=== PATIENT | male | born 1980 | race Caucasian/White ===

== ENCOUNTER 2022-08-07 08:00 | Inpatient (IN) | payer OTHER, SELFPAY ==
[2022-08-07] VITALS (22 sets, daily range): BP systolic 121–182; BP diastolic 76–111; PULSE 67–124; RESP 7–229; TEMP 36.7–37.2; O2SAT 92–99; BMI 30.3; BMI 30.5
[2022-08-07] MEDS: SODIUM CHLORIDE 0.9% 1,000 ML 1000 ML IV ×2 (08:34→10:09)
[2022-08-07] MEDS: ONDANSETRON 4 MG/2 ML INJ IV ×2 (08:34→18:11)
--- NOTE | 2022-08-07 08:43 | ED.GENADULT ---
HPI - General Adult General Chief complaint: Abdominal Pain Stated complaint: Severe abd pain all over Time Seen by Provider: 08/07/22 08:40 Source: patient Mode of arrival: Ambulatory History of Present Illness HPI narrative: 41-year-old gentleman with history of hypertension presents with severe left upper quadrant pain acute onset at 6:00 a.m. this morning. He has had 2 prior episodes of significant pain has been diagnosed with pancreatitis no etiology was immediately identified, he is a moderate drinker only and medications include hydrochlorothiazide and gemfibrozil. The gemfibrozil was started after the last episode of pancreatitis. Does have the next available appointment with an restaurant kitchen manager which is mid September. He is diaphoretic, pale and vomiting from the severe pain. He describes no fevers, cough, chills, palpitations, headaches recently. Related Data Home Medications Medication Instructions Recorded Confirmed gemfibrozil 600 mg tablet 600 mg PO BID 08/07/22 08/07/22 hydrochlorothiazide 25 mg tablet 25 mg PO DAILY 08/07/22 08/07/22 Allergies Allergy/AdvReac Type Severity Reaction Status Date / Time No Known Drug Allergies Allergy Verified 08/07/22 08:16 Review of Systems Review of Systems Narrative: Remainder of complete review of systems is otherwise unremarkable except for that included in the HPI. Patient History Medical History Hypertension Pancreatitis Surgical History No pertinent past surgical history Family History Father Hypertriglyceridemia CAD (coronary artery disease) Mother No problems noted. Brother CAD (coronary artery disease) Social History household members: spouse Smoking Status: Current every day smoker alcohol intake: current Smoking Status: Current every day smoker alcohol intake frequency: 0-2 drinks per day Substance Use Type: does not use Exam Initial Vital Signs Initial Vital Signs: Vital Signs Pulse Rate 79 08/07/22 08:08 Pulse Oximetry 99 08/07/22 08:08 General: Healthy appearing, in significant pain but Able to give a complete and coherent history. Well-nourished well-developed HEENT: Moist mucous membranes, normal sclera with reactive pupils, Neck: No JVD, supple Respiratory: Lungs are clear to auscultation, no wheezing no rales no rhonchi. Full and symmetrical air movement Cardiac: Regular rate and rhythm no murmurs no bruits Abdomen: Significantly tender with mild guarding around the left upper quadrant, decreased bowel tones, no rebound. He has some mild left flank pain but describes this as more radiating from the abdominal left upper quadrant. No right-sided flank pain Skin: Warm and dry, no rashes Neurologic: Grossly neurologically intact with no obvious asymmetries or abnormalities Extremities: No trauma, well perfused Psych: Cooperative, appropriate insight and affect Course Orders Ordered: Acetaminophen (Acetaminophen 325 Mg Tablet) 975 mg PO Q8H PRN PRN Reason: Pain, Mild (1-3) Heparin Sodium (Porcine) (Heparin 5,000 Unit/Ml Vial) 5,000 unit SUBCUT BID [facility] Last Admin: 08/07/22 20:04 Dose: 5,000 unit Documented By: BEAN Hydromorphone HCl (Hydromorphone 1 Mg Inj) 1 mg IV Q2H PRN PRN Reason: Pain, Moderate (4-6) Last Admin: 08/08/22 00:17 Dose: 1 mg Documented By: Admin: 08/07/22 16:09 Dose: 1 mg Documented By: Admin: 08/07/22 14:21 Dose: 1 mg Documented By: REGINALDO Hydromorphone HCl (Hydromorphone 2 Mg Inj) 2 mg IV Q2H PRN PRN Reason: Pain, Severe (7-10) Last Admin: 08/08/22 01:10 Dose: 2 mg Documented By: Admin: 08/07/22 22:56 Dose: 2 mg Documented By: Admin: 08/07/22 20:04 Dose: 2 mg Documented By: Admin: 08/07/22 13:21 Dose: 2 mg Documented By: REGINALDO Hydromorphone HCl (Hydromorphone 1 Mg Inj) 1 mg IV Q1H PRN PRN Reason: Breakthrough Pain Last Admin: 08/07/22 22:01 Dose: 1 mg Documented By: Admin: 08/07/22 18:10 Dose: 1 mg Documented By: REGINALDO Dextrose/Sodium Chloride (Dextrose 5%-0.9% Ns) 1,000 mls @ 100 mls/hr IV CONT [facility] Last Admin: 08/08/22 04:24 Dose: 250 mls/hr Documented By: Infusion: 08/08/22 04:24 Dose: 250 mls/hr Documented By: Admin: 08/08/22 00:30 Dose: 250 mls/hr Documented By: Infusion: 08/08/22 00:20 Dose: 250 mls/hr Documented By: Infusion: 08/07/22 20:40 Dose: 250 mls/hr Documented By: Admin: 08/07/22 20:14 Dose: 200 mls/hr Documented By: Infusion: 08/07/22 19:36 Dose: 200 mls/hr Documented By: Infusion: 08/07/22 17:25 Dose: 200 mls/hr Documented By: Infusion: 08/07/22 15:12 Dose: 150 mls/hr Documented By: Admin: 08/07/22 12:53 Dose: 100 mls/hr Documented By: REGINALDO INSULIN DRIP PREMIX (Myxredlin Drip Premix) 100 unit in 100 mls @ 10.433 mls/hr IV TITRATE MICHAEL; Protocol Last Titration: 08/07/22 20:39 Dose: 0.05 unit/kg/hr, 5 mls/hr Documented By: BEAN Co-signed By: [facility] Admin: 08/07/22 20:16 Dose: 0.1 unit/kg/hr, 10.433 mls/hr Documented By: BEAN Co-signed By: [facility] Titration: 08/07/22 20:16 Dose: 0.1 unit/kg/hr, 10.433 mls/hr Documented By: BEAN Co-signed By: [facility] Admin: 08/07/22 12:55 Dose: 0.1 unit/kg/hr, 10.433 mls/hr Documented By: REGINALDO Co-signed By: Nicotine (Nicotine 14 Patch) 14 mg TOP DAILY MICHAEL Ondansetron HCl (Ondansetron 4 Mg/2 Ml Inj) 4 mg IV Q4HR PRN PRN Reason: Nausea And Vomiting Last Admin: 08/07/22 18:11 Dose: 4 mg Documented By: CW Discontinued Medications Hydromorphone HCl (Hydromorphone 1 Mg Inj) 1 mg IV NOW ONE Stop: 08/07/22 08:50 Last Admin: 08/07/22 09:02 Dose: 1 mg Documented By: SAMEERA Hydromorphone HCl (Hydromorphone 0.5 Mg Inj) 0.5 mg IV Q15MIN PRN PRN Reason: Pain, Last Admin: 08/07/22 10:04 Dose: 0.5 mg Documented By: SAMEERA Hydromorphone HCl (Hydromorphone 1 Mg Inj) 1 mg IV NOW ONE Stop: 08/07/22 09:46 Last Admin: 08/07/22 09:55 Dose: 1 mg Documented By: SAMEERA Sodium Chloride (Normal Saline 0.9%) 1,000 mls @ 1,000 mls/hr IV BOLUS ONE Stop: 08/07/22 09:33 Last Infusion: 08/07/22 10:06 Dose: 0 mls/hr Documented By: Admin: 08/07/22 08:34 Dose: 1,000 mls/hr Documented By: SAMEERA Sodium Chloride (Normal Saline 0.9%) 1,000 mls @ 1,000 mls/hr IV BOLUS ONE Stop: 08/07/22 09:48 Last Infusion: 08/07/22 12:26 Dose: 100 mls/hr Documented By: Admin: 08/07/22 10:09 Dose: 1,000 mls/hr Documented By: SAMEERA Nicotine (Nicotine 14 Patch) 14 mg TOP NOW ONE Stop: 08/07/22 13:43 Last Admin: 08/07/22 14:19 Dose: 14 mg Documented By: REGINALDO Ondansetron HCl (Ondansetron 4 Mg/2 Ml Inj) 4 mg IV NOW ONE Stop: 08/07/22 08:24 Last Admin: 08/07/22 08:34 Dose: 4 mg Documented By: SAMEERA Vital Signs Vital signs: Vital Signs - 8 hr 08/07/22 08:17 08/07/22 08:08 08/07/22 08:09 Temperature 98.2 F Pulse Rate 75 79 Respiratory Rate 18 Blood Pressure 182/111 H 182/111 H Pulse Oximetry 98 99 Oxygen Delivery Method Room Air 08/07/22 08:09 08/07/22 08:43 08/07/22 09:00 Temperature Pulse Rate 77 72 67 Respiratory Rate Blood Pressure Pulse Oximetry 98 99 95 Oxygen Delivery Method 08/07/22 09:47 08/07/22 09:47 Temperature Pulse Rate 73 Respiratory Rate 22 Blood Pressure 156/96 H Pulse Oximetry 95 Oxygen Delivery Method Medical Decision Making Lab Data Result diagrams: 08/07/22 08:25 08/07/22 08:25 Labs: Lab Results 08/07/22 08/07/22 08/07/22 Range/Units 08:25 08:25 08:25 WBC 7.2 (4.5-11.0) X10^3/uL RBC 4.76 (4.5-5.9) X10^6/uL Hgb 14.4 (13.5-17.5) g/dL Hct 41.7 (41-53) % MCV 87.6 (80-100) fL MCH 30.3 (26-34) PG MCHC 34.6 (30-36) % RDW 12.4 (11.6-14.8) % Plt Count 289 (150-400) X10^3/uL Neut % (Auto) 57.6 (50-75) % Lymph % (Auto) 33.9 (25-40) % [place] % (Auto) 6.5 (3-14) % Eos % (Auto) 1.5 L (2-4) % Baso % (Auto) 0.5 (0-2) % Neut # (Auto) 4200 (2859-2996) /uL Lymph # (Auto) 2400 (4259-4010) /uL [place] # (Auto) 500 (0-900) /uL Eos # (Auto) 100 (0-450) /uL Baso # (Auto) 0 (0-100) /uL Sodium 137 (137-145) mmol/L Potassium 5.0 (3.4-5.1) mmol/L Chloride 101 (98-107) mmol/L Carbon Dioxide 20 L (22-32) mmol/L BUN 15 (9-20) mg/dL Creatinine 0.62 L (0.66-1.25) mg/dL Estimated GFR > 60 (>60) mL/min BUN/Creatinine Ratio 24.2 H (6-22) Glucose 195 H (70-100) mg/dL Calcium 9.1 (8.4-10.2) mg/dL Total Bilirubin 1.2 (0.2-1.3) mg/dL AST 50 (17-59) IU/L ALT 42 (<50) IU/L Alkaline Phosphatase 83 (38-126) U/L Total Protein 9.1 H (6.3-8.2) g/dL Albumin 4.6 (3.5-5.0) g/dL Globulin 4.5 H (1.7-4.1) g/dL Albumin/Globulin Ratio 1.0 (1.0-2.8) Triglycerides 4714 H (35-150) mg/dL Lipase 2657 H (23-300) U/L SARS-CoV-2 (PCR) (Negative) Influenza A (RT-PCR) (NEGATIVE) Influenza B (RT-PCR) (NEGATIVE) RSV (PCR) (Negative) 08/07/22 Range/Units 09:57 WBC (4.5-11.0) X10^3/uL RBC (4.5-5.9) X10^6/uL Hgb (13.5-17.5) g/dL Hct (41-53) % MCV (80-100) fL MCH (26-34) PG MCHC (30-36) % RDW (11.6-14.8) % Plt Count (150-400) X10^3/uL Neut % (Auto) (50-75) % Lymph % (Auto) (25-40) % [place] % (Auto) (3-14) % Eos % (Auto) (2-4) % Baso % (Auto) (0-2) % Neut # (Auto) (5373-8610) /uL Lymph # (Auto) (9263-0491) /uL [place] # (Auto) (0-900) /uL Eos # (Auto) (0-450) /uL Baso # (Auto) (0-100) /uL Sodium (137-145) mmol/L Potassium (3.4-5.1) mmol/L Chloride (98-107) mmol/L Carbon Dioxide (22-32) mmol/L BUN (9-20) mg/dL Creatinine (0.66-1.25) mg/dL Estimated GFR (>60) mL/min BUN/Creatinine Ratio (6-22) Glucose (70-100) mg/dL Calcium (8.4-10.2) mg/dL Total Bilirubin (0.2-1.3) mg/dL AST (17-59) IU/L ALT (<50) IU/L Alkaline Phosphatase (38-126) U/L Total Protein (6.3-8.2) g/dL Albumin (3.5-5.0) g/dL Globulin (1.7-4.1) g/dL Albumin/Globulin Ratio (1.0-2.8) Triglycerides (35-150) mg/dL Lipase (23-300) U/L SARS-CoV-2 (PCR) Negative (Negative) Influenza A (RT-PCR) Flu a negative (NEGATIVE) Influenza B (RT-PCR) Flu b negative (NEGATIVE) RSV (PCR) Negative (Negative) Imaging Data CT scan - abdomen/pelvis: Radiologist's Impression: FINDINGS:? Image quality:? Excellent.? ? Lung bases:? Unremarkable. Heart:? No significant findings. ? ABDOMEN: Liver:? There is a paddle megaly and severe hepatic steatosis, no discrete hepatic lesion is identified. Gallbladder:? Gallbladder is within normal limits. Biliary ducts:? Unremarkable.? ? Pancreas:? Pancreas is slightly enlarged with peripancreatic fat stranding and edema adjacent to head and uncinate process of pancreas concerning for acute pancreatitis.? No discrete drainable peripancreatic fluid collection. Spleen:? Unremarkable.? ? Adrenal Glands:? Unremarkable.? ? Kidneys and Ureters:? Unremarkable.? ? ? Stomach and Bowel:? Stomach, small bowel loops, and colon are unremarkable.? Appendix is surgically absent.? Peritoneum:? No abnormal intraperitoneal fluid.? No free air.? ? Ventral Wall: ? No hernias.? Abdominal Nodes:? No retroperitoneal or mesenteric adenopathy by size criteria.? Vessels:? Aorta and inferior vena cava are normal in size.? ? PELVIS: Pelvic Organs:? Unremarkable.? ? Bladder:? Unremarkable.? ? Pelvic Nodes: No enlarged lymph nodes.? Miscellaneous: No hernias are seen. ? ? ? Bones:? No suspicious bony lesion.? No acute vertebral body compression fracture. ? ? IMPRESSION:? 1. Finding is consistent with acute pancreatitis involving head and uncinate process of pancreas.? No discrete drainable peripancreatic fluid collection. 2. Hepatomegaly and severe hepatic steatosis.? No discrete hepatic lesion.? Normal appearing gallbladder.? No biliary ductal dilatation. 3. No bowel obstruction or abnormal bowel wall thickening.? No free fluid or free air.? Prior appendectomy.? ? ? Dictated by: Abhinav Owens M.D. on 08/07/2022 at 9:27 ? ? ECG Data Interpretation: Sinus rhythm at 68 Normal intervals, normal axis No acute ischemic changes MDM Narrative Medical decision making narrative: 41-year-old gentleman with now 3rd episode of pancreatitis no obvious inciting etiology. Significant pain we have not yet gotten under control in the emergency department. CT scan does confirm acute pancreatitis with no other obvious abnormalities. Discussed admission for pain control. He will consider this but also open to the idea of discharge home with pain control and not eating for a number of days which was effective with his last episode. The last episode was not as severe as current episode. There is no evidence of infection or choledocholithiasis. I do believe endocrinology as already scheduled will be appropriate. He may be appropriate for an abdominal MR to see if there are any other findings or changes at the head of the pancreas that would be responsible for his recurrent episodes. Lab calls, significant lipemia was noted. Will check lipid panel. May well be reason for his pancreatitis Discussed with the hospitalist. If triglyceride level is greater than 500 he needs to be on an insulin drip in go to the ICU. Triglyceride level is ordered. Will need this back before knowing which bed type will be most appropriate for this gentleman. Triglycerides are 4714. Will need ICU admit. Dr Morley notified. Disucssed with patient Discharge Plan Departure Patient Disposition: Admitted As Inpatient Clinical Impression: Acute pancreatitis Qualifiers: Pancreatitis type: other Acute pancreatitis complication: no infection or necrosis Qualified Code(s): K85.80 - Other acute pancreatitis without necrosis or infection Admit Date/Time: 08/07/22 12:14 Admit Provider: Evan Morley
--- NOTE | 2022-08-07 08:49 | DI.CT.S_ITS ---
PROCEDURE: CT ABDOMEN PELVIS W CON INDICATIONS: severe abd pain onset 6am, worse Left lower quad TECHNIQUE: After the administration of intravenous contrast, axial sections acquired from the lung bases to the pubic symphysis. Coronal and sagittal reformats were performed. For radiation dose reduction, the following was used: automated exposure control, adjustment of mA and/or kV according to patient size. COMPARISON: None. FINDINGS: Image quality: Excellent. Lung bases: Unremarkable. Heart: No significant findings. ABDOMEN: Liver: There is a paddle megaly and severe hepatic steatosis, no discrete hepatic lesion is identified. Gallbladder: Gallbladder is within normal limits. Biliary ducts: Unremarkable. Pancreas: Pancreas is slightly enlarged with peripancreatic fat stranding and edema adjacent to head and uncinate process of pancreas concerning for acute pancreatitis. No discrete drainable peripancreatic fluid collection. Spleen: Unremarkable. Adrenal Glands: Unremarkable. Kidneys and Ureters: Unremarkable. Stomach and Bowel: Stomach, small bowel loops, and colon are unremarkable. Appendix is surgically absent. Peritoneum: No abnormal intraperitoneal fluid. No free air. Ventral Wall: No hernias. Abdominal Nodes: No retroperitoneal or mesenteric adenopathy by size criteria. Vessels: Aorta and inferior vena cava are normal in size. PELVIS: Pelvic Organs: Unremarkable. Bladder: Unremarkable. Pelvic Nodes: No enlarged lymph nodes. Miscellaneous: No hernias are seen. Bones: No suspicious bony lesion. No acute vertebral body compression fracture. IMPRESSION: 1. Finding is consistent with acute pancreatitis involving head and uncinate process of pancreas. No discrete drainable peripancreatic fluid collection. 2. Hepatomegaly and severe hepatic steatosis. No discrete hepatic lesion. Normal appearing gallbladder. No biliary ductal dilatation. 3. No bowel obstruction or abnormal bowel wall thickening. No free fluid or free air. Prior appendectomy. Dictated by: Abhinav Owens M.D. on 08/07/2022 at 9:27 Approved by: Abhinav Owens M.D. on 08/07/2022 at 9:33
[2022-08-07 08:51] LABS: Alanine Aminotransferase 42 IU/L (<50); Albumin 4.6 g/dL (3.5-5.0); Alkaline Phosphatase 83 U/L (38-126); Aspartate Aminotransferase 50 IU/L (17-59); BUN Creatinine Ratio 24.2 (6-22); Bilirubin Total 1.2 mg/dL (0.2-1.3); Blood Urea Nitrogen 15 mg/dL (9-20); Calcium 9.1 mg/dL (8.4-10.2); Carbon Dioxide 20 mmol/L (22-32); Chloride 101 mmol/L (98-107); Estimated Glomerular Filt Rate > 60 mL/min (>60); Globulin 4.5 g/dL (1.7-4.1); Glucose 195 mg/dL (70-100); Sodium 137 mmol/L (137-145); Total Protein 9.1 g/dL (6.3-8.2)
[2022-08-07 08:58] LABS: HEMOLYSIS 25 (0-50); Lipase 2657 U/L (23-300)
[2022-08-07] MEDS: HYDROMORPHONE 1 MG INJ IV ×6 (09:02→22:01)
[2022-08-07] MEDS: HYDROMORPHONE 0.5 MG INJ IV (10:04)
[2022-08-07 10:16] LABS: White Blood Cell Count 7.2 X10^3/uL (4.5-11.0)
[2022-08-07 10:17] LABS: Hematocrit 41.7 % (41-53); Hemoglobin 14.4 g/dL (13.5-17.5); Red Blood Cell Count 4.76 X10^6/uL (4.5-5.9)
[2022-08-07 10:18] LABS: Mean Corpuscular HGB Conc 34.6 % (30-36); Mean Corpuscular Hemoglobin 30.3 PG (26-34); Mean Corpuscular Volume 87.6 fL (80-100); Red Cell Distribution Width 12.4 % (11.6-14.8)
[2022-08-07 10:19] LABS: Platelet Count 289 X10^3/uL (150-400)
[2022-08-07 10:20] LABS: Add Manual Diff / Slide Review NO; Basophils Absolute Auto 0 /uL (0-100); Basophils Percent Auto 0.5 % (0-2); Eosinophils Absolute Auto 100 /uL (0-450); Eosinophils Percent Auto 1.5 % (2-4); Lymphocytes Absolute Auto 2400 /uL (1100-4500); Lymphocytes Percent Auto 33.9 % (25-40); Monocytes Absolute Auto 500 /uL (0-900); Monocytes Percent Auto 6.5 % (3-14); Neutrophils Absolute Auto 4200 /uL (1500-7000); Neutrophils Percent Auto 57.6 % (50-75)
[2022-08-07 10:39] LABS: Influenza A - CEPHEID Flu A NEGATIVE (NEGATIVE); Influenza B - CEPHEID Flu B NEGATIVE (NEGATIVE); Respiratory Syncytial Virus Negative (Negative)
[2022-08-07 10:40] LABS: COVID-19 CEPHEID PCR (VTM/NP) Negative (Negative)
[2022-08-07 11:13] LABS: Triglycerides 4714 mg/dL (35-150)
[2022-08-07] MEDS: DEXTROSE 5%-0.9% NS 1,000 ML 100 ML IV (12:53)
[2022-08-07] MEDS: INSULIN DRIP PREMIX 100 UNIT/100 ML PLAST..BAG 10.433 UNIT IV ×2 (12:55→20:16)
[2022-08-07] MEDS: HYDROMORPHONE 2 MG INJ IV ×3 (13:21→22:56)
--- NOTE | 2022-08-07 13:23 | PM.HP.1 ---
History of Present Illness History of Present Illness Date Patient Seen: 08/07/22 Time Patient Seen: 13:23 Chief complaint: Severe abd pain all over Narrative: This is a 41 year old male PMH of elevated TG and HTN, prior episodes of pancreatitis presented with abdominal pain since this morning. Pain is epigastric primarily but now diffuse as well, sharp, non-radiating. Associated with nausea, and NBNB emesis today. This is consistent with prior episodes for him. He has been taking his gemfibrozil, diet has not been great the past few months but generally he tries to follow a low fat diet. He denies chest pain, shortness of breath, rash, LE edema, or abdominal swelling. He has no urinary frequency or dysuria. He denies melena or hematochezia. No hematemesis. In the ER, he was mildly hypertensive, mild tachycardia with rates in the 90s-100s on telemetry. Labs showed an unremarkable CBC, glucose of 195, triglycerides of 4714, with a lipase of 2657. COVID-19 and flu testing was negative. Abdominal CT scan showed findings consistent with acute pancreatitis without complication. He was transferred to the ICU on an insulin infusion for hypertriglyceridemia induced pancreatitis Patient History Medical History Hypertension Pancreatitis Surgical History No pertinent past surgical history Family & Social History Family History Father Hypertriglyceridemia CAD (coronary artery disease) Mother No problems noted. Brother CAD (coronary artery disease) Social History: household members spouse Prior Living Arrangements House Safety & Behavioral: Feels Safe in Current Yes Environment Been Physically Hurt or No Threatened By a Person Tobacco & Substance use: Tobacco type cigarettes Smoking Status Current every day smoker alcohol intake current alcohol intake frequency 0-2 drinks per day Substance Use Type does not use Meds Home Medications and Allergies Home Medications Medication Instructions Recorded Confirmed Type gemfibrozil 600 mg tablet 600 mg PO BID 08/07/22 08/07/22 History hydrochlorothiazide 25 mg tablet 25 mg PO DAILY 08/07/22 08/07/22 History Allergies Allergy/AdvReac Type Severity Reaction Status Date / Time No Known Drug Allergies Allergy Verified 08/07/22 08:16 Review of Systems Review of Systems Narrative: All other systems reviewed with the patient and are negative unless otherwise stated. Exam Vital Signs (past 8 hours): - 08/07/22 08:17 08/07/22 08:08 08/07/22 08:09 Temperature 98.2 F Pulse Rate 75 79 Respiratory Rate 18 Blood Pressure 182/111 H 182/111 H Pulse Oximetry 98 99 Oxygen Delivery Method Room Air 08/07/22 08:09 08/07/22 08:43 08/07/22 09:00 Temperature Pulse Rate 77 72 67 Respiratory Rate Blood Pressure Pulse Oximetry 98 99 95 Oxygen Delivery Method 08/07/22 09:47 08/07/22 09:47 08/07/22 10:00 Temperature Pulse Rate 73 74 Respiratory Rate 22 Blood Pressure 156/96 H Pulse Oximetry 95 94 Oxygen Delivery Method 08/07/22 10:30 08/07/22 11:00 08/07/22 11:30 Temperature Pulse Rate 79 84 88 Respiratory Rate Blood Pressure Pulse Oximetry 93 93 94 Oxygen Delivery Method 08/07/22 12:00 08/07/22 12:24 08/07/22 12:24 Temperature Pulse Rate 90 93 H Respiratory Rate Blood Pressure 134/94 H Pulse Oximetry 93 95 Oxygen Delivery Method Oxygen Delivery Method Room Air Narrative Exam Narrative: General:? Patient is well developed and well nourished, in discomfort due to pain. HEENT:? Normocephalic, atraumatic, extraocular muscles intact, oral pharynx is clear and mucous membranes are moist. Neck: supple and symmetric, trachea is midline, no cervical adenopathy. Negative for JVD Chest:? Normal AP diameter and contour without kyphoscoliosis, no tachypnea, equal chest rise bilaterally. Lungs:? CTA b/l no wheezing rhonchi or rales. Cardio:?mild tachycardia, no m/r/g. Regular rhythm. Abdomen: soft, mild distension, with diffuse moderate tenderness. Musculoskeletal:? Muscle strength and tone are equal within normal limits, no deformity. Extremities: No edema or joint effusions. No cyanosis or clubbing. Skin:? Pale,? Warm to touch,dry and intact without rashes, ulcerations or petechiae.? Neuro:? Alert and orientated x3,? sensation to touch intact in all extremities, no gross deficits noted of cranial nerves. Psych:? Patient has a well-kept appearance, appropriate affect, mental status attitude thought context and judgment are appropriate for age. Objective Labs Result Diagrams: 08/07/22 08:25 08/07/22 08:25 Labs: Laboratory Results - last 24 hr 08/07/22 08/07/22 08/07/22 08:25 08:25 08:25 WBC 7.2 RBC 4.76 Hgb 14.4 Hct 41.7 MCV 87.6 MCH 30.3 MCHC 34.6 RDW 12.4 Plt Count 289 Neut % (Auto) 57.6 Lymph % (Auto) 33.9 [place] % (Auto) 6.5 Eos % (Auto) 1.5 L Baso % (Auto) 0.5 Neut # (Auto) 4200 Lymph # (Auto) 2400 [place] # (Auto) 500 Eos # (Auto) 100 Baso # (Auto) 0 Sodium 137 Potassium 5.0 Chloride 101 Carbon Dioxide 20 L BUN 15 Creatinine 0.62 L Estimated GFR > 60 BUN/Creatinine Ratio 24.2 H Glucose 195 H Calcium 9.1 Total Bilirubin 1.2 AST 50 ALT 42 Alkaline Phosphatase 83 Total Protein 9.1 H Albumin 4.6 Globulin 4.5 H Albumin/Globulin Ratio 1.0 Triglycerides 4714 H Lipase 2657 H SARS-CoV-2 (PCR) Influenza A (RT-PCR) Influenza B (RT-PCR) RSV (PCR) 08/07/22 09:57 WBC RBC Hgb Hct MCV MCH MCHC RDW Plt Count Neut % (Auto) Lymph % (Auto) [place] % (Auto) Eos % (Auto) Baso % (Auto) Neut # (Auto) Lymph # (Auto) [place] # (Auto) Eos # (Auto) Baso # (Auto) Sodium Potassium Chloride Carbon Dioxide BUN Creatinine Estimated GFR BUN/Creatinine Ratio Glucose Calcium Total Bilirubin AST ALT Alkaline Phosphatase Total Protein Albumin Globulin Albumin/Globulin Ratio Triglycerides Lipase SARS-CoV-2 (PCR) Negative Influenza A (RT-PCR) Flu a negative Influenza B (RT-PCR) Flu b negative RSV (PCR) Negative Assessment & Plan Assessment & Plan narrative: 1. 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 - he has been admitted with this same problem, he reports 2 prior admissions in the past 3 years. - reports compliance with gemfibrozil. - dietary consultation. - continue insulin infusion, D5 infusion until TG <500. Do not drop infusion below 0.1 U / kg / hr. - check A1c. FS Q1H on insulin infusion. - no evidence of biliary disease. - pain control with dilaudid - NPO and IVF to continue. IVF with D5, now at 200 cc per hour. 2. Elevated glucose - will check an a1c, on an insulin infusion currently. 3. HTN - will hold/discontinue HCTZ as this can increase pancreatitis risk. Will hold antihypertensives for now unless SBP > 180 or symptoms. 4. Tobacco use - counseled on cessation, nicotine patch ordered. Code: Full, surrogate decision maker patient's spouse I spent 35 minutes providing critical care management this patient. This excludes time spent in performing separately billed procedures. I have utilized all available immediate resources to obtain, update, or review the patient's current medications. COVID-19 COVID-19 status: Negative Time Spent With Patient Critical Care time: I spent a total of [] minutes of critical care time on this patient's care today; this time is exclusive of procedural time. Quality VTE Deep Vein Thrombosis/Pulmonary Embolism Present on Admission: No MIPS - Admit I confirm the patient?s Advance Care Plan is present, Code status is documented, Surrogate decision maker is in patient?s record [If Yes, STOP here]: Yes
[2022-08-07] MEDS: NICOTINE 14 PATCH 14 MG TOP (14:19)
--- NOTE | 2022-08-07 14:54 | P.TELICUCN_ITS ---
History of Present Illness Consult details IF CAMERA ACTIVATED, patient seen via real-time interactive audiovisual communication: Camera activated Chief complaint: Severe abd pain all over Consent obtained for tele-traffic analysis technician care: Yes Patient Location: ICU Provider location (State): [place] Other participants/roles: RN, Narrative: 41 year old man with h/o of high TG presneting with abd, trasnferred to ICU for further management of hyperTG induced pancreatitis PFSH Medical History Hypertension Pancreatitis Surgical History No pertinent past surgical history Family History Father Hypertriglyceridemia CAD (coronary artery disease) Mother No problems noted. Brother CAD (coronary artery disease) Social History household members: spouse Smoking Status: Current every day smoker alcohol intake: current Current Medications Current Medications Medications: Home Medications gemfibrozil 600 mg tablet 600 mg PO BID 08/07/22 [History Confirmed 08/07/22] hydrochlorothiazide 25 mg tablet 25 mg PO DAILY 08/07/22 [History Confirmed 08/07/22] Visit Medications (administered) Generic Name Dose Route Start Last Admin Trade Name Freq PRN Reason Stop Dose Admin Hydromorphone HCl 1 mg 08/07/22 13:13 08/07/22 14:21 Hydromorphone 1 Mg Inj IV 1 mg Q2H PRN Administration Pain, Moderate (4-6) Hydromorphone HCl 2 mg 08/07/22 13:13 08/07/22 13:21 Hydromorphone 2 Mg Inj IV 2 mg Q2H PRN Administration Pain, Severe (7-10) Dextrose/Sodium Chloride 1,000 mls @ 100 mls/hr 08/07/22 12:30 08/07/22 12:53 Dextrose 5%-0.9% Ns IV 100 mls/hr CONT MICHAEL Administration INSULIN DRIP PREMIX 100 unit in 100 mls @ 10.433 mls/hr 08/07/22 12:30 08/07/22 12:55 Myxredlin Drip Premix IV 0.1 unit/kg/hr TITRATE MICHAEL 10.433 mls/hr Administration Protocol 0.1 UNIT/KG/HR Exam Vital Signs (past 8 hours): - 08/07/22 08:17 08/07/22 08:08 08/07/22 08:09 Temperature 98.2 F Pulse Rate 75 79 Respiratory Rate 18 Blood Pressure 182/111 H 182/111 H Pulse Oximetry 98 99 Oxygen Delivery Method Room Air Oxygen Flow Rate 08/07/22 08:09 08/07/22 08:43 08/07/22 09:00 Temperature Pulse Rate 77 72 67 Respiratory Rate Blood Pressure Pulse Oximetry 98 99 95 Oxygen Delivery Method Oxygen Flow Rate 08/07/22 09:47 08/07/22 09:47 08/07/22 10:00 Temperature Pulse Rate 73 74 Respiratory Rate 22 Blood Pressure 156/96 H Pulse Oximetry 95 94 Oxygen Delivery Method Oxygen Flow Rate 08/07/22 10:30 08/07/22 11:00 08/07/22 11:30 Temperature Pulse Rate 79 84 88 Respiratory Rate Blood Pressure Pulse Oximetry 93 93 94 Oxygen Delivery Method Oxygen Flow Rate 08/07/22 12:00 08/07/22 12:24 08/07/22 12:24 Temperature Pulse Rate 90 93 H Respiratory Rate Blood Pressure 134/94 H Pulse Oximetry 93 95 Oxygen Delivery Method Oxygen Flow Rate 08/07/22 12:21 08/07/22 12:30 08/07/22 12:27 Temperature 98.1 F 98.2 F Pulse Rate 92 H 90 Respiratory Rate 229 H 17 Blood Pressure 155/92 H 140/95 H Pulse Oximetry 95 Oxygen Delivery Method Room Air Oxygen Flow Rate 0 Oxygen Delivery Method Room Air Oxygen Flow Rate 0 Narrative Exam Narrative: surrogate for exam is primary team Objective Labs Result Diagrams: 08/07/22 08:25 08/07/22 08:25 Labs: Laboratory Results - last 24 hr 08/07/22 08/07/22 08/07/22 08:25 08:25 08:25 WBC 7.2 RBC 4.76 Hgb 14.4 Hct 41.7 MCV 87.6 MCH 30.3 MCHC 34.6 RDW 12.4 Plt Count 289 Neut % (Auto) 57.6 Lymph % (Auto) 33.9 Moody % (Auto) 6.5 Eos % (Auto) 1.5 L Baso % (Auto) 0.5 Neut # (Auto) 4200 Lymph # (Auto) 2400 Moody # (Auto) 500 Eos # (Auto) 100 Baso # (Auto) 0 Sodium 137 Potassium 5.0 Chloride 101 Carbon Dioxide 20 L BUN 15 Creatinine 0.62 L Estimated GFR > 60 BUN/Creatinine Ratio 24.2 H Glucose 195 H Calcium 9.1 Total Bilirubin 1.2 AST 50 ALT 42 Alkaline Phosphatase 83 Total Protein 9.1 H Albumin 4.6 Globulin 4.5 H Albumin/Globulin Ratio 1.0 Triglycerides 4714 H Lipase 2657 H SARS-CoV-2 (PCR) Influenza A (RT-PCR) Influenza B (RT-PCR) RSV (PCR) 08/07/22 09:57 WBC RBC Hgb Hct MCV MCH MCHC RDW Plt Count Neut % (Auto) Lymph % (Auto) Moody % (Auto) Eos % (Auto) Baso % (Auto) Neut # (Auto) Lymph # (Auto) Moody # (Auto) Eos # (Auto) Baso # (Auto) Sodium Potassium Chloride Carbon Dioxide BUN Creatinine Estimated GFR BUN/Creatinine Ratio Glucose Calcium Total Bilirubin AST ALT Alkaline Phosphatase Total Protein Albumin Globulin Albumin/Globulin Ratio Triglycerides Lipase SARS-CoV-2 (PCR) Negative Influenza A (RT-PCR) Flu a negative Influenza B (RT-PCR) Flu b negative RSV (PCR) Negative Assessment & Plan Assessment and plan (1) Acute pancreatitis: Qualifiers: Acute pancreatitis complication: no infection or necrosis Pancreatitis type: other Qualified Code(s): K85.80 - Other acute pancreatitis without necrosis or infection Status: Acute (2) Hypertriglyceridemia: Status: Acute (3) Metabolic acidosis: Status: Acute Plan pain control IVF d5w with 1/2 ns k riders as needed NPO for now trend bmp VBG insulin gtt FS q1 hr dvt ppx gemfibrozil when tg < 700 total critical care time = 35 min Time Spent With Patient Critical Care time: I spent a total of [] minutes of critical care time on this patient's care today; this time is exclusive of procedural time.
[2022-08-07] MEDS: HEPARIN 5,000 UNIT/ML VIAL 5000 UNIT SUBCUT (20:04)
[2022-08-07] MEDS: DEXTROSE 5%-0.9% NS 1,000 ML 200 ML IV (20:14)
--- NOTE | 2022-08-07 20:27 | PM.ICURNDS ---
- :: This patient was seen via real time interactive two-way audiovisual telecommunication. Note: Admitted for acute pancreatitis secondary to hypertriglyceridemia. Insulin infusion running at 10 units per hour with BS ~86. Will decrease insulin to 5 units/hr and increase D51/2 NS to 250 ml/hr. Cont accucheck and titrate D5 to maintain BS 150-250. D/w RN at bedside.
[2022-08-08] VITALS (28 sets, daily range): BP systolic 109–139; BP diastolic 62–90; PULSE 78–96; RESP 9–22; TEMP 36.6–37.3; O2SAT 90–97
[2022-08-08] MEDS: HYDROMORPHONE 1 MG INJ IV ×6 (00:17→17:32)
[2022-08-08] MEDS: DEXTROSE 5%-0.9% NS 1,000 ML 250 ML IV ×2 (00:30→04:24)
[2022-08-08] MEDS: HYDROMORPHONE 2 MG INJ IV ×6 (01:10→22:06)
[2022-08-08 06:43] LABS: Add Manual Diff / Slide Review NO; Basophils Absolute Auto 0 /uL (0-100); Basophils Percent Auto 0.5 % (0-2); Eosinophils Absolute Auto 200 /uL (0-450); Eosinophils Percent Auto 2.2 % (2-4); Hematocrit 35.2 % (41-53); Hemoglobin 12.6 g/dL (13.5-17.5); Lymphocytes Absolute Auto 1800 /uL (1100-4500); Lymphocytes Percent Auto 21.4 % (25-40); Mean Corpuscular HGB Conc 35.9 % (30-36); Mean Corpuscular Hemoglobin 31.1 PG (26-34); Mean Corpuscular Volume 86.7 fL (80-100); Monocytes Absolute Auto 600 /uL (0-900); Monocytes Percent Auto 7.2 % (3-14); Neutrophils Absolute Auto 5900 /uL (1500-7000); Neutrophils Percent Auto 68.7 % (50-75); Platelet Count 193 X10^3/uL (150-400); Red Blood Cell Count 4.06 X10^6/uL (4.5-5.9); Red Cell Distribution Width 12.2 % (11.6-14.8); White Blood Cell Count 8.6 X10^3/uL (4.5-11.0)
[2022-08-08 06:59] LABS: Alanine Aminotransferase 29 IU/L (<50); Albumin 3.5 g/dL (3.5-5.0); Albumin Globulin Ratio 1.1 (1.0-2.8); Alkaline Phosphatase 56 U/L (38-126); Aspartate Aminotransferase 24 IU/L (17-59); BUN Creatinine Ratio 15.6 (6-22); Bilirubin Total 0.6 mg/dL (0.2-1.3); Blood Urea Nitrogen 7 mg/dL (9-20); Calcium 7.6 mg/dL (8.4-10.2); Carbon Dioxide 26 mmol/L (22-32); Chloride 101 mmol/L (98-107); Estimated Glomerular Filt Rate > 60 mL/min (>60); Globulin 3.1 g/dL (1.7-4.1); Glucose 102 mg/dL (70-100); HEMOLYSIS 17 (0-50); Magnesium 1.6 mg/dL (1.6-2.3); Potassium 3.1 mmol/L (3.4-5.1); Sodium 134 mmol/L (137-145); Total Protein 6.6 g/dL (6.3-8.2)
[2022-08-08 07:12] LABS: Triglycerides 1542 mg/dL (35-150)
[2022-08-08 08:07] LABS: Hemoglobin A1C% w Est Avg Glu 7.9 % (4.0-6.0)
[2022-08-08] MEDS: NICOTINE 14 PATCH 14 MG TOP (08:28)
[2022-08-08] MEDS: HEPARIN 5,000 UNIT/ML VIAL 5000 UNIT SUBCUT ×2 (08:28→19:43)
[2022-08-08] MEDS: ONDANSETRON 4 MG/2 ML INJ IV ×2 (08:36→17:29)
[2022-08-08] MEDS: ACETAMINOPHEN 325 MG TABLET 975 MG PO ×2 (09:11→18:43)
--- NOTE | 2022-08-08 09:19 | CM.DANOTE ---
DCP: Case received, EMR reviewed and met with patient. Introduced self and role. Was able to obtain information regarding patient's baseline activity level prior to hospitalization. DCP assessment completed with information currently available. Patient is a 41 year old male who admitted yesterday afternoon to the care of the hospitalist team. PCP: can't remember the name of provider, but does have. Payer: confirmed: [employer]. Patient came to the hospital via private vehicle secondary to having left upper quadrant pain. Notes indicate that pain occurred early in the morning. Patient does drink alcohol. Patient has history of pancreatitis, and is to be seeing an court usher in September. Patient had presented symptoms of diaphoresis and vomiting. Patient holds current diagnosis of acute pancreatitis. He is in ICU, triglyceride level was 4714. Met briefly with patient in his room. She was sitting up in bed, having pain, he had been given some pain medications. Confirmed that he resides in [place] with partner, Usha. Confirmed that he does have a primary provider, but not at the [facility]. P: DCP to continue to follow. Plan is home when deemed medically stable. Lyric Nayak RN/Filemaker Developer Discharge Planning/Care Management CM Discharge Assessment Start: 08/08/22 09:18 Freq: Status: Active Protocol: Document 08/08/22 09:18 (Rec: 08/08/22 09:19 [id number]) Discharge Planning Assessment Assigned Lpn Per Diem Lyric Nayak RN/Filemaker Developer Advance Directives? No History Provided By Patient,Medical Record Prior Living Arrangements House Household Members spouse Type of transporation used prior to Drives own vehicle admit Independent with ADL's Yes Is patient alert and oriented? Yes Caregiver for Another No Barriers to Discharge No Discharge Plan Home Transportation Arrangement Life Partner Referrals Initiated None needed Whiteboard Updated in Patient Room with Yes name and ext. # of Lpn Per Diem Review Status In Process Next Review Type Continued Stay Review
[2022-08-08] MEDS: POTASSIUM CHLORIDE IN WATER 10 MEQ/100 ML PIGGYBACK 100 MEQ IV ×4 (09:28→13:20)
[2022-08-08] MEDS: MAGNESIUM SULFATE 2 GM/50 ML PIGGYBACK IV (09:28)
--- NOTE | 2022-08-08 09:54 | PM.PN.EICU ---
Subjective Subjective IF CAMERA ACTIVATED, patient seen via real-time interactive audiovisual communication: Camera activated Consent obtained for tele-environmental monitoring technician care: Yes Patient Location: ICU Provider location (State): [place] Other participants/roles: na Interval history: no livia events overnight 41 year old male with acute pancreatitis Current Medications Current Medications Medications: Home Medications gemfibrozil 600 mg tablet 600 mg PO BID 08/07/22 [History Confirmed 08/07/22] hydrochlorothiazide 25 mg tablet 25 mg PO DAILY 08/07/22 [History Confirmed 08/07/22] Visit Medications (administered) Generic Name Dose Route Start Last Admin Trade Name Freq PRN Reason Stop Dose Admin Acetaminophen 975 mg 08/07/22 12:30 08/08/22 09:11 Acetaminophen 325 Mg Tablet PO 975 mg Q8H PRN Administration Pain, Mild (1-3) Heparin Sodium (Porcine) 5,000 unit 08/07/22 21:00 08/08/22 08:28 Heparin 5,000 Unit/Ml Vial SUBCUT 5,000 unit BID MICHAEL Administration Hydromorphone HCl 1 mg 08/07/22 13:13 08/08/22 07:45 Hydromorphone 1 Mg Inj IV 1 mg Q2H PRN Administration Pain, Moderate (4-6) Hydromorphone HCl 2 mg 08/07/22 13:13 08/08/22 01:10 Hydromorphone 2 Mg Inj IV 2 mg Q2H PRN Administration Pain, Severe (7-10) Hydromorphone HCl 1 mg 08/07/22 14:16 08/08/22 09:07 Hydromorphone 1 Mg Inj IV 1 mg Q1H PRN Administration Breakthrough Pain Dextrose/Sodium Chloride 1,000 mls @ 100 mls/hr 08/07/22 12:30 08/08/22 09:42 Dextrose 5%-0.9% Ns IV Infused CONT MICHAEL Infusion INSULIN DRIP PREMIX 100 unit in 100 mls @ 10.433 mls/hr 08/07/22 12:30 08/08/22 09:42 Myxredlin Drip Premix IV 0.02 unit/kg/hr TITRATE MICHAEL 2.5 mls/hr Titration Protocol 0.1 UNIT/KG/HR POTASSIUM CHLORIDE IN WATER 10 meq in 100 mls @ 100 mls/hr 08/08/22 09:30 08/08/22 09:28 Potassium Cl 10 Meq/100 Ml Tara IV 08/08/22 13:29 100 mls/hr Q1H MICHAEL Administration Magnesium Sulfate 2 gm in 50 mls @ 25 mls/hr 08/08/22 09:30 08/08/22 09:28 Magnesium Sulfate IV 08/08/22 11:29 25 mls/hr NOW ONE Administration Nicotine 14 mg 08/08/22 09:00 08/08/22 08:28 Nicotine 14 Patch TOP 14 mg DAILY MICHAEL Administration Ondansetron HCl 4 mg 08/07/22 13:14 08/08/22 08:36 Ondansetron 4 Mg/2 Ml Inj IV 4 mg Q4HR PRN Administration Nausea And Vomiting Objective Labs Result Diagrams: 08/08/22 06:00 08/08/22 06:00 Labs: Laboratory Results - last 24 hr 08/07/22 08/07/22 08/07/22 08:25 08:25 09:57 WBC 7.2 RBC 4.76 Hgb 14.4 Hct 41.7 MCV 87.6 MCH 30.3 MCHC 34.6 RDW 12.4 Plt Count 289 Neut % (Auto) 57.6 Lymph % (Auto) 33.9 Morton % (Auto) 6.5 Eos % (Auto) 1.5 L Baso % (Auto) 0.5 Neut # (Auto) 4200 Lymph # (Auto) 2400 [place] # (Auto) 500 Eos # (Auto) 100 Baso # (Auto) 0 Sodium Potassium Chloride Carbon Dioxide BUN Creatinine Estimated GFR BUN/Creatinine Ratio Glucose Hemoglobin A1c Calcium Magnesium Total Bilirubin AST ALT Alkaline Phosphatase Total Protein Albumin Globulin Albumin/Globulin Ratio Triglycerides 4714 H Nasal Screen MRSA (PCR) SARS-CoV-2 (PCR) Negative Influenza A (RT-PCR) Flu a negative Influenza B (RT-PCR) Flu b negative RSV (PCR) Negative 08/07/22 08/08/22 08/08/22 12:30 06:00 06:00 WBC 8.6 RBC 4.06 L Hgb 12.6 L Hct 35.2 L MCV 86.7 MCH 31.1 MCHC 35.9 RDW 12.2 Plt Count 193 Neut % (Auto) 68.7 Lymph % (Auto) 21.4 L Morton % (Auto) 7.2 Eos % (Auto) 2.2 Baso % (Auto) 0.5 Neut # (Auto) 5900 Lymph # (Auto) 1800 [place] # (Auto) 600 Eos # (Auto) 200 Baso # (Auto) 0 Sodium Potassium Chloride Carbon Dioxide BUN Creatinine Estimated GFR BUN/Creatinine Ratio Glucose Hemoglobin A1c Calcium Magnesium Total Bilirubin AST ALT Alkaline Phosphatase Total Protein Albumin Globulin Albumin/Globulin Ratio Triglycerides 1542 H Nasal Screen MRSA (PCR) Negative for mrsa SARS-CoV-2 (PCR) Influenza A (RT-PCR) Influenza B (RT-PCR) RSV (PCR) 08/08/22 08/08/22 06:00 06:00 WBC RBC Hgb Hct MCV MCH MCHC RDW Plt Count Neut % (Auto) Lymph % (Auto) Morton % (Auto) Eos % (Auto) Baso % (Auto) Neut # (Auto) Lymph # (Auto) Morton # (Auto) Eos # (Auto) Baso # (Auto) Sodium 134 L Potassium 3.1 L D Chloride 101 Carbon Dioxide 26 BUN 7 L Creatinine 0.45 L Estimated GFR > 60 BUN/Creatinine Ratio 15.6 Glucose 102 H Hemoglobin A1c 7.9 H Calcium 7.6 L Magnesium 1.6 Total Bilirubin 0.6 AST 24 ALT 29 Alkaline Phosphatase 56 Total Protein 6.6 Albumin 3.5 Globulin 3.1 Albumin/Globulin Ratio 1.1 Triglycerides Nasal Screen MRSA (PCR) SARS-CoV-2 (PCR) Influenza A (RT-PCR) Influenza B (RT-PCR) RSV (PCR) Exam Vital Signs (past 8 hours): - 08/08/22 03:00 08/08/22 02:00 08/08/22 02:00 Temperature Pulse Rate 89 Respiratory Rate 10 L Blood Pressure 117/62 Pulse Oximetry 90 L Oxygen Delivery Method Room Air Oxygen Flow Rate 08/08/22 03:00 08/08/22 03:00 08/08/22 04:00 Temperature Pulse Rate 84 Respiratory Rate 12 Blood Pressure 109/62 122/74 Pulse Oximetry 90 L Oxygen Delivery Method Oxygen Flow Rate 08/08/22 04:00 08/08/22 05:00 08/08/22 05:00 Temperature 98.6 F Pulse Rate 85 91 H Respiratory Rate 10 L 11 L Blood Pressure 122/77 Pulse Oximetry 93 93 Oxygen Delivery Method Oxygen Flow Rate 08/08/22 06:00 08/08/22 06:00 08/08/22 08:00 Temperature 98.1 F Pulse Rate 89 85 Respiratory Rate 12 9 L Blood Pressure 127/79 119/78 Pulse Oximetry 96 96 Oxygen Delivery Method Oxygen Flow Rate 0 Oxygen Delivery Method Room Air Oxygen Flow Rate 0 Quality TeleICU VTE Deep Vein Thrombosis/Pulmonary Embolism Present on Admission: No Assessment & Plan Assessment and plan (1) Acute pancreatitis: Qualifiers: Acute pancreatitis complication: no infection or necrosis Pancreatitis type: other Qualified Code(s): K85.80 - Other acute pancreatitis without necrosis or infection Status: Acute (2) Hypertriglyceridemia: Status: Acute (3) Metabolic acidosis: Status: Acute Plan patient seen with bedside nurse and provider chart/labs.imaging reviewed 41 year old male with acut pacnreatitis 2/2 to hypertiglycerdemia currently afebrile, HD stable TG level down to 1400 plan -pain control, minimize opiods use -can decrease IVF -hold insulin drip while glucose is less than 100 and K is less than 3.3 -replace lytes and restart drip once glucose and potassium in acceptable levels -start gemfibrozil/statin/niacin/omega 3 -monitor ins/outs -gi/dvt ppx -clear no fat diet as tolerated -please call eICU icondtion changes total critical care time = 45 min Time Spent With Patient Critical Care time: I spent a total of [] minutes of critical care time on this patient's care today; this time is exclusive of procedural time.
[2022-08-08] MEDS: DEXTROSE 5%-0.9% NS 1,000 ML 150 ML IV ×2 (10:07→17:02)
[2022-08-08 14:31] LABS: BUN Creatinine Ratio 7.5 (6-22); Blood Urea Nitrogen 4 mg/dL (9-20); Carbon Dioxide 24 mmol/L (22-32); Chloride 101 mmol/L (98-107); Estimated Glomerular Filt Rate > 60 mL/min (>60); Glucose 136 mg/dL (70-100); HEMOLYSIS < 15 (0-50); Potassium 3.9 mmol/L (3.4-5.1); Sodium 134 mmol/L (137-145)
[2022-08-08] MEDS: OXYCODONE IR 5 MG TABLET PO ×2 (17:04→21:05)
--- NOTE | 2022-08-08 18:28 | PM.PN.1 ---
Subjective Subjective Date Patient Seen: 08/08/22 Interval history: He reports improved pain and nausea today, though he still is uncomfortable. Insulin infusion was shut off temporarily for hypokalemia and hypoglycemia. Now resumed. Advanced to clears and some oral pain medications were added. Exam Vital Signs (past 8 hours): - 08/08/22 11:00 08/08/22 12:20 08/08/22 15:00 Temperature 97.9 F Pulse Rate 83 82 Respiratory Rate 14 10 L Blood Pressure 121/73 Pulse Oximetry 93 94 Oxygen Delivery Method Room Air Oxygen Flow Rate 0 Oxygen Delivery Method Room Air Oxygen Flow Rate 0 Narrative Exam Narrative: General:? Patient is well developed and well nourished, in discomfort due to pain. HEENT:? Normocephalic, atraumatic, extraocular muscles intact, oral pharynx is clear and mucous membranes are moist. Neck: supple and symmetric, trachea is midline, no cervical adenopathy. Negative for JVD Chest:? Normal AP diameter and contour without kyphoscoliosis, no tachypnea, equal chest rise bilaterally. Lungs:? CTA b/l no wheezing rhonchi or rales. Cardio:?mild tachycardia, no m/r/g. Regular rhythm. Abdomen: soft, mild distension, with diffuse moderate tenderness. Musculoskeletal:? Muscle strength and tone are equal within normal limits, no deformity. Extremities: No edema or joint effusions. No cyanosis or clubbing. Skin:? Pale,? Warm to touch,dry and intact without rashes, ulcerations or petechiae.? Neuro:? Alert and orientated x3,? sensation to touch intact in all extremities, no gross deficits noted of cranial nerves. Psych:? Patient has a well-kept appearance, appropriate affect, mental status attitude thought context and judgment are appropriate for age. Objective Labs Result Diagrams: 08/08/22 06:00 08/08/22 14:18 Labs: Laboratory Results - last 24 hr 08/08/22 08/08/22 08/08/22 06:00 06:00 06:00 WBC 8.6 RBC 4.06 L Hgb 12.6 L Hct 35.2 L MCV 86.7 MCH 31.1 MCHC 35.9 RDW 12.2 Plt Count 193 Neut % (Auto) 68.7 Lymph % (Auto) 21.4 L [place] % (Auto) 7.2 Eos % (Auto) 2.2 Baso % (Auto) 0.5 Neut # (Auto) 5900 Lymph # (Auto) 1800 [place] # (Auto) 600 Eos # (Auto) 200 Baso # (Auto) 0 Sodium 134 L Potassium 3.1 L D Chloride 101 Carbon Dioxide 26 BUN 7 L Creatinine 0.45 L Estimated GFR > 60 BUN/Creatinine Ratio 15.6 Glucose 102 H Hemoglobin A1c Calcium 7.6 L Magnesium 1.6 Total Bilirubin 0.6 AST 24 ALT 29 Alkaline Phosphatase 56 Total Protein 6.6 Albumin 3.5 Globulin 3.1 Albumin/Globulin Ratio 1.1 Triglycerides 1542 H 08/08/22 08/08/22 06:00 14:18 WBC RBC Hgb Hct MCV MCH MCHC RDW Plt Count Neut % (Auto) Lymph % (Auto) [place] % (Auto) Eos % (Auto) Baso % (Auto) Neut # (Auto) Lymph # (Auto) [place] # (Auto) Eos # (Auto) Baso # (Auto) Sodium 134 L Potassium 3.9 Chloride 101 Carbon Dioxide 24 BUN 4 L Creatinine 0.53 L Estimated GFR > 60 BUN/Creatinine Ratio 7.5 Glucose 136 H Hemoglobin A1c 7.9 H Calcium 8.0 L Magnesium Total Bilirubin AST ALT Alkaline Phosphatase Total Protein Albumin Globulin Albumin/Globulin Ratio Triglycerides [facility] Medical History Hypertension Pancreatitis Surgical History No pertinent past surgical history Family History Father Hypertriglyceridemia CAD (coronary artery disease) Mother No problems noted. Brother CAD (coronary artery disease) Social History household members: spouse Smoking Status: Current every day smoker alcohol intake: current Assessment & Plan Assessment & Plan narrative: 1. 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 - he has been admitted with this same problem, he reports 2 prior admissions in the past 3 years. - reports compliance with gemfibrozil. add statin. can resume oral medications today. - dietary consultation. - continue insulin infusion, D5 infusion until TG <500. Insulin infusion briefly held for hypoglycemia and hypokalemia today. - no evidence of biliary disease. - pain control with dilaudid - advance diet as tolerated, currently on clears. 2. Type 2 diabetes - A1c 7.9%, new diagnosis - will likely discharge on oral metformin, PCP follow up. - currently on insulin infusion. No evidence of DKA on admission. 3. HTN - will hold/discontinue HCTZ as this can increase pancreatitis risk. Will hold antihypertensives for now unless SBP > 180 or symptoms. 4. Tobacco use - counseled on cessation, nicotine patch ordered. Code: Full, surrogate decision maker patient's spouse I spent 35 minutes providing critical care management this patient. This excludes time spent in performing separately billed procedures. I have utilized all available immediate resources to obtain, update, or review the patient's current medications. COVID-19 COVID-19 status: Negative Time Spent With Patient Critical Care time: I spent a total of [] minutes of critical care time on this patient's care today; this time is exclusive of procedural time. Quality VTE Deep Vein Thrombosis/Pulmonary Embolism Present on Admission: No
[2022-08-08 18:49] LABS: BUN Creatinine Ratio 7.5 (6-22); Blood Urea Nitrogen 4 mg/dL (9-20); Calcium 8.3 mg/dL (8.4-10.2); Carbon Dioxide 26 mmol/L (22-32); Chloride 101 mmol/L (98-107); Estimated Glomerular Filt Rate > 60 mL/min (>60); Glucose 145 mg/dL (70-100); HEMOLYSIS < 15 (0-50); Potassium 3.6 mmol/L (3.4-5.1); Sodium 135 mmol/L (137-145)
[2022-08-08 19:02] LABS: Triglycerides 1210 mg/dL (35-150)
--- NOTE | 2022-08-08 20:25 | PM.ICURNDS ---
- :: This patient was seen via real time interactive two-way audiovisual telecommunication. Note: Patient admitted for acute pancreatitis 2/2 to hypertriglyceridemia. On insulin 2.5 units/hr and D512 NS 150 cc/hr. TG downtrending. Will dc BMP and trend daily TG level. D/w RN at bedside.
[2022-08-09] VITALS (21 sets, daily range): BP systolic 109–129; BP diastolic 65–88; PULSE 69–93; RESP 16–19; TEMP 36.2–37.1; O2SAT 95–98
[2022-08-09] MEDS: INSULIN DRIP PREMIX 100 UNIT/100 ML PLAST..BAG IV (00:11)
[2022-08-09] MEDS: HYDROMORPHONE 1 MG INJ IV ×6 (00:15→20:00)
[2022-08-09] MEDS: DEXTROSE 5%-0.9% NS 1,000 ML 150 ML IV ×3 (00:15→15:25)
[2022-08-09] MEDS: OXYCODONE IR 5 MG TABLET PO ×4 (01:10→15:21)
[2022-08-09] MEDS: ACETAMINOPHEN 325 MG TABLET 975 MG PO ×2 (02:28→11:21)
[2022-08-09] MEDS: gemfibroziL 600 MG TABLET PO ×2 (06:06→15:28)
[2022-08-09 06:32] LABS: Add Manual Diff / Slide Review NO; Basophils Absolute Auto 0 /uL (0-100); Basophils Percent Auto 0.5 % (0-2); Eosinophils Absolute Auto 300 /uL (0-450); Eosinophils Percent Auto 4.7 % (2-4); Hematocrit 33.9 % (41-53); Hemoglobin 11.9 g/dL (13.5-17.5); Lymphocytes Absolute Auto 1600 /uL (1100-4500); Mean Corpuscular HGB Conc 35.2 % (30-36); Mean Corpuscular Hemoglobin 30.7 PG (26-34); Mean Corpuscular Volume 87.2 fL (80-100); Monocytes Absolute Auto 500 /uL (0-900); Monocytes Percent Auto 8.4 % (3-14); Neutrophils Absolute Auto 3300 /uL (1500-7000); Neutrophils Percent Auto 57.4 % (50-75); Platelet Count 189 X10^3/uL (150-400); Red Blood Cell Count 3.88 X10^6/uL (4.5-5.9); Red Cell Distribution Width 12.5 % (11.6-14.8); White Blood Cell Count 5.7 X10^3/uL (4.5-11.0)
[2022-08-09 06:43] LABS: Alanine Aminotransferase 38 IU/L (<50); Albumin 3.5 g/dL (3.5-5.0); Albumin Globulin Ratio 1.2 (1.0-2.8); Alkaline Phosphatase 57 U/L (38-126); Aspartate Aminotransferase 35 IU/L (17-59); Bilirubin Total 0.5 mg/dL (0.2-1.3); Calcium 8.1 mg/dL (8.4-10.2); Carbon Dioxide 25 mmol/L (22-32); Chloride 105 mmol/L (98-107); Estimated Glomerular Filt Rate > 60 mL/min (>60); Glucose 126 mg/dL (70-100); HEMOLYSIS < 15 (0-50); Magnesium 2.1 mg/dL (1.6-2.3); Potassium 3.7 mmol/L (3.4-5.1); Sodium 137 mmol/L (137-145); Total Protein 6.5 g/dL (6.3-8.2)
[2022-08-09 06:58] LABS: Triglycerides 1025 mg/dL (35-150)
[2022-08-09 06:59] LABS: BUN Creatinine Ratio 3.9 (6-22); Blood Urea Nitrogen 2 mg/dL (9-20)
[2022-08-09] MEDS: NICOTINE 14 PATCH 14 MG TOP (08:02)
[2022-08-09] MEDS: HEPARIN 5,000 UNIT/ML VIAL 5000 UNIT SUBCUT ×2 (08:02→20:01)
--- NOTE | 2022-08-09 08:29 | PM.PN.EICU ---
Subjective Subjective IF CAMERA ACTIVATED, patient seen via real-time interactive audiovisual communication: Camera activated Consent obtained for tele-wrapper operator care: Yes Patient Location: ICU Provider location (State): [place] Other participants/roles: RN Interval history: Admitted for acute pancreatitis 2/2 to hypertriglyceridemia. On insulin and D51/2 NS infusion. Most recent TG level 1025. Current Medications Current Medications Medications: Home Medications gemfibrozil 600 mg tablet 600 mg PO BID 08/07/22 [History Confirmed 08/07/22] hydrochlorothiazide 25 mg tablet 25 mg PO DAILY 08/07/22 [History Confirmed 08/07/22] Visit Medications (administered) Generic Name Dose Route Start Last Admin Trade Name Freq PRN Reason Stop Dose Admin Acetaminophen 975 mg 08/07/22 12:30 08/09/22 02:28 Acetaminophen 325 Mg Tablet PO 975 mg Q8H PRN Administration Pain, Mild (1-3) Gemfibrozil 600 mg 08/09/22 07:00 08/09/22 06:06 Gemfibrozil 600 Mg Tablet PO 600 mg BIDAC MICHAEL Administration Heparin Sodium (Porcine) 5,000 unit 08/07/22 21:00 08/09/22 08:02 Heparin 5,000 Unit/Ml Vial SUBCUT 5,000 unit BID MICHAEL Administration Hydromorphone HCl 1 mg 08/07/22 13:13 08/09/22 07:03 Hydromorphone 1 Mg Inj IV 1 mg Q2H PRN Administration Pain, Moderate (4-6) Hydromorphone HCl 2 mg 08/07/22 13:13 08/08/22 22:06 Hydromorphone 2 Mg Inj IV 2 mg Q2H PRN Administration Pain, Severe (7-10) Hydromorphone HCl 1 mg 08/07/22 14:16 08/09/22 08:03 Hydromorphone 1 Mg Inj IV 1 mg Q1H PRN Administration Breakthrough Pain Dextrose/Sodium Chloride 1,000 mls @ 100 mls/hr 08/07/22 12:30 08/09/22 07:03 Dextrose 5%-0.9% Ns IV 150 mls/hr CONT MICHAEL Administration INSULIN DRIP PREMIX 100 unit in 100 mls @ 10.433 mls/hr 08/07/22 12:30 08/09/22 00:11 Myxredlin Drip Premix IV 0.02 unit/kg/hr TITRATE MICHAEL 2.5 mls/hr Administration Protocol 0.1 UNIT/KG/HR Nicotine 14 mg 08/08/22 09:00 08/09/22 08:02 Nicotine 14 Patch TOP 14 mg DAILY MICHAEL Administration Ondansetron HCl 4 mg 08/07/22 13:14 08/08/22 17:29 Ondansetron 4 Mg/2 Ml Inj IV 4 mg Q4HR PRN Administration Nausea And Vomiting Oxycodone HCl 5 mg 08/08/22 16:56 08/09/22 05:13 Oxycodone Ir 5 Mg Tablet PO 5 mg Q4HR PRN Administration Pain, Moderate (4-6) Objective Labs Result Diagrams: 08/09/22 05:58 08/09/22 05:58 Labs: Laboratory Results - last 24 hr 08/08/22 08/08/22 08/08/22 14:18 18:25 18:25 WBC RBC Hgb Hct MCV MCH MCHC RDW Plt Count Neut % (Auto) Lymph % (Auto) [place] % (Auto) Eos % (Auto) Baso % (Auto) Neut # (Auto) Lymph # (Auto) [place] # (Auto) Eos # (Auto) Baso # (Auto) Sodium 134 L 135 L Potassium 3.9 3.6 Chloride 101 101 Carbon Dioxide 24 26 BUN 4 L 4 L Creatinine 0.53 L 0.53 L Estimated GFR > 60 > 60 BUN/Creatinine Ratio 7.5 7.5 Glucose 136 H 145 H Calcium 8.0 L 8.3 L Magnesium Total Bilirubin AST ALT Alkaline Phosphatase Total Protein Albumin Globulin Albumin/Globulin Ratio Triglycerides 1210 H 08/09/22 08/09/22 08/09/22 05:58 05:58 05:58 WBC 5.7 RBC 3.88 L Hgb 11.9 L Hct 33.9 L MCV 87.2 MCH 30.7 MCHC 35.2 RDW 12.5 Plt Count 189 Neut % (Auto) 57.4 Lymph % (Auto) 29.0 [place] % (Auto) 8.4 Eos % (Auto) 4.7 H Baso % (Auto) 0.5 Neut # (Auto) 3300 Lymph # (Auto) 1600 [place] # (Auto) 500 Eos # (Auto) 300 Baso # (Auto) 0 Sodium 137 Potassium 3.7 Chloride 105 Carbon Dioxide 25 BUN 2 L Creatinine 0.51 L Estimated GFR > 60 BUN/Creatinine Ratio 3.9 L Glucose 126 H Calcium 8.1 L Magnesium 2.1 Total Bilirubin 0.5 AST 35 ALT 38 Alkaline Phosphatase 57 Total Protein 6.5 Albumin 3.5 Globulin 3.0 Albumin/Globulin Ratio 1.2 Triglycerides 1025 H Exam Vital Signs (past 8 hours): - 08/09/22 04:00 08/09/22 04:00 08/09/22 08:05 Temperature 97.4 F L 98 F Pulse Rate 74 73 Respiratory Rate 18 18 Blood Pressure 109/65 112/85 Pulse Oximetry 95 97 Oxygen Delivery Method Room Air Oxygen Flow Rate 0 Oxygen Delivery Method Room Air Oxygen Flow Rate 0 Quality TeleICU VTE Deep Vein Thrombosis/Pulmonary Embolism Present on Admission: No Assessment & Plan Assessment & Plan narrative: # Acute pancreatitis -- Secondary to hypertriglyceridemia -- Cont IVF and pain control -- NPO -- Encourage early mobility # Hypertriglyceridemia -- Added lipitor -- On insulin and D51/2 NS infusion -- Cont gemfibrozil -- Added lipitor -- Goal TG < 500 before transitioning off insulin infusion -- Daily TG level D/w Dr. Morley and RN at bedside. Time Spent With Patient Critical Care time: I spent a total of 35 minutes of critical care time on this patient's care today; this time is exclusive of procedural time.
[2022-08-09] MEDS: ONDANSETRON 4 MG/2 ML INJ IV (11:08)
--- NOTE | 2022-08-09 12:49 | PC.NURSE ---
patient requests to advance diet, Dr Steiner said clear liquid only since patient is still having sever abdominal pain requiring multiple pain meds consistently and zofran for nausea. Dr Morley told patient he can advance his diet as he feels he can tolerate. Patient wants to try half a tuna sandwich and claims his abd pain is improving.
--- NOTE | 2022-08-09 16:03 | P.PN_ITS ---
Subjective Subjective Date Patient Seen: 08/09/22 Interval history: He reports improved pain and nausea today, though he still is uncomfortable. No fever or chills, he became nauseous with Jell-O. Exam Vital Signs (past 8 hours): - 08/09/22 08:05 08/09/22 13:02 Temperature 98 F 98 F Pulse Rate 73 75 Respiratory Rate 18 17 Blood Pressure 112/85 129/75 Pulse Oximetry 97 98 Oxygen Flow Rate 0 0 Oxygen Delivery Method Room Air Oxygen Flow Rate 0 Narrative Exam Narrative: General:? Patient is well developed and well nourished, in discomfort due to pain. HEENT:? Normocephalic, atraumatic, extraocular muscles intact, oral pharynx is clear and mucous membranes are moist. Neck: supple and symmetric, trachea is midline, no cervical adenopathy. Negative for JVD Chest:? Normal AP diameter and contour without kyphoscoliosis, no tachypnea, equal chest rise bilaterally. Lungs:? CTA b/l no wheezing rhonchi or rales. Cardio:RRR no m/r/g. Abdomen: soft, mild distension, with diffuse moderate tenderness. Musculoskeletal:? Muscle strength and tone are equal within normal limits, no deformity. Extremities: No edema or joint effusions. No cyanosis or clubbing. Skin:? Pale,? Warm to touch,dry and intact without rashes, ulcerations or petechiae.? Neuro:? Alert and orientated x3,? sensation to touch intact in all extremities, no gross deficits noted of cranial nerves. Psych:? Patient has a well-kept appearance, appropriate affect, mental status attitude thought context and judgment are appropriate for age. Objective Labs Result Diagrams: 08/09/22 05:58 08/09/22 05:58 Labs: Laboratory Results - last 24 hr 08/08/22 08/08/22 08/09/22 18:25 18:25 05:58 WBC RBC Hgb Hct MCV MCH MCHC RDW Plt Count Neut % (Auto) Lymph % (Auto) [place] % (Auto) Eos % (Auto) Baso % (Auto) Neut # (Auto) Lymph # (Auto) [place] # (Auto) Eos # (Auto) Baso # (Auto) Sodium 135 L Potassium 3.6 Chloride 101 Carbon Dioxide 26 BUN 4 L Creatinine 0.53 L Estimated GFR > 60 BUN/Creatinine Ratio 7.5 Glucose 145 H Calcium 8.3 L Magnesium Total Bilirubin AST ALT Alkaline Phosphatase Total Protein Albumin Globulin Albumin/Globulin Ratio Triglycerides 1210 H 1025 H 08/09/22 08/09/22 05:58 05:58 WBC 5.7 RBC 3.88 L Hgb 11.9 L Hct 33.9 L MCV 87.2 MCH 30.7 MCHC 35.2 RDW 12.5 Plt Count 189 Neut % (Auto) 57.4 Lymph % (Auto) 29.0 [place] % (Auto) 8.4 Eos % (Auto) 4.7 H Baso % (Auto) 0.5 Neut # (Auto) 3300 Lymph # (Auto) 1600 [place] # (Auto) 500 Eos # (Auto) 300 Baso # (Auto) 0 Sodium 137 Potassium 3.7 Chloride 105 Carbon Dioxide 25 BUN 2 L Creatinine 0.51 L Estimated GFR > 60 BUN/Creatinine Ratio 3.9 L Glucose 126 H Calcium 8.1 L Magnesium 2.1 Total Bilirubin 0.5 AST 35 ALT 38 Alkaline Phosphatase 57 Total Protein 6.5 Albumin 3.5 Globulin 3.0 Albumin/Globulin Ratio 1.2 Triglycerides [facility] Medical History Hypertension Pancreatitis Surgical History No pertinent past surgical history Family History Father Hypertriglyceridemia CAD (coronary artery disease) Mother No problems noted. Brother CAD (coronary artery disease) Social History household members: spouse Smoking Status: Current every day smoker alcohol intake: current Assessment & Plan Assessment & Plan narrative: 1. 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 - he has been admitted with this same problem, he reports 2 prior admissions in the past 3 years. - reports compliance with gemfibrozil. add statin. can resume oral medications today. - dietary consultation. - continue insulin infusion, D5 infusion until TG <500. Insulin infusion briefly held for hypoglycemia and hypokalemia. TG still >1000 today. Repeat this PM. - no evidence of biliary disease. - pain control with dilaudid - advance diet as tolerated, currently on clears. 2. Type 2 diabetes - A1c 7.9%, new diagnosis - will likely discharge on oral metformin, PCP follow up. - currently on insulin infusion. No evidence of DKA on admission. 3. HTN - will hold/discontinue HCTZ as this can increase pancreatitis risk. Will hold antihypertensives for now unless SBP > 180 or symptoms. 4. Tobacco use - counseled on cessation, nicotine patch ordered. Code: Full, surrogate decision maker patient's spouse I spent 35 minutes providing critical care management this patient. This excludes time spent in performing separately billed procedures. I have utilized all available immediate resources to obtain, update, or review the patient's current medications. COVID-19 COVID-19 status: Negative Time Spent With Patient Critical Care time: I spent a total of [] minutes of critical care time on this patient's care today; this time is exclusive of procedural time. Quality VTE Deep Vein Thrombosis/Pulmonary Embolism Present on Admission: No
--- NOTE | 2022-08-09 16:46 | DIET.CONS ---
Dietary Consultation Note Admission Date: 08/07/2022 12:14 Assessment: 41 y/o M admitted with hypertriglyceridemic pancreatitis and found to have T2DM with HgA1c of 7.9%. Endorses FH of DM with father, paternal grandfather, and paternal grandfather. States he is feeling much better today and diet has advanced to CCD. 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 Also endorses a lot of sedentary time, limited exercise. Lives in [place]. Improved PO of 50-100% today. Ht: 185.42 cm Wt: 110 kg BMI: 30.5 Last BM: 08/07/22 (08/07/22 12:32) MNA: 9 Robin Score: 22 Diet: 08/09/22 Breakfast Clear Liquid Diet Diet Modifications: 08/09/22 Dinner Carbohydrate Consistent Diet Diet Modifications: May Advance Diet as Tolerated: Yes Safety Tray needed?: No Carbohydrate level: Large (4 CHO) Bedtime snack: No Nutrition Percent Meal Consumed 50% 08/09/22 13:12 Percent Meal Consumed 100% 08/09/22 09:08 Labs: RBC 3.88 X10^6/uL (4.5-5.9) L 08/09/22 05:58 Hgb 11.9 g/dL (13.5-17.5) L 08/09/22 05:58 Hct 33.9 % (41-53) L 08/09/22 05:58 Creatinine 0.51 mg/dL (0.66-1.25) L 08/09/22 05:58 Hemoglobin A1c 7.9 % (4.0-6.0) H 08/08/22 06:00 Nutrition Diagnosis: Altered nutrition related lab value r/t new dx of T2DM aeb hgA1c 7.8% Interventions: 1. Carb counting education, pairing macros, plate method 2. Brief review of T2 pathophysiology 3. OP DSME programs near [place] and provided my card for questions Nutrition rx: Per meal: 45-60g CHO ; per snack: 15-30g Monitoring/Evaluations: consult prn Electronically Signed by: Geraldine Zhu 08/09/22 16:46 Clinical Dietitian [address] [address]
[2022-08-09 18:46] LABS: Triglycerides 1064 mg/dL (35-150)
--- NOTE | 2022-08-09 20:23 | PM.ICURNDS ---
- Date Patient Seen: 08/09/22 Time Patient Seen: 20:23 :: This patient was seen via real time interactive two-way audiovisual telecommunication. Note: Most recent TG level 1064. Will increase insulin to 5 units and switch D5W to D10W running at 150 mL/hr. Goal BS 120-200. D/w RN and patient at bedside.
--- NOTE | 2022-08-09 21:00 | PC.NURSE ---
Per CHASE Jaeger to increase insulin ggt to 5 ml/hr and change IVF to D10 @ 150ml/hr in hopes to decrease triglyceride value faster. Will repeat glucose checks Q1 hr for 2 hours, then if stable, will check glucose Q2 hours.
[2022-08-09] MEDS: DEXTROSE 10 % IN WATER 1,000 ML 150 ML IV (21:07)
[2022-08-09] MEDS: HYDROMORPHONE 2 MG INJ IV (22:23)
[2022-08-10] VITALS (16 sets, daily range): BP systolic 117–141; BP diastolic 71–95; PULSE 75–86; RESP 14–20; TEMP 36.4–37.6; O2SAT 97–99
[2022-08-10] MEDS: OXYCODONE IR 5 MG TABLET 10 MG PO ×6 (00:17→22:22)
[2022-08-10] MEDS: DEXTROSE 10 % IN WATER 1,000 ML 150 ML IV ×4 (03:57→23:26)
[2022-08-10 05:23] LABS: Add Manual Diff / Slide Review NO; Basophils Absolute Auto 0 /uL (0-100); Basophils Percent Auto 0.6 % (0-2); Eosinophils Absolute Auto 300 /uL (0-450); Eosinophils Percent Auto 6.3 % (2-4); Hematocrit 35.4 % (41-53); Hemoglobin 12.5 g/dL (13.5-17.5); Lymphocytes Absolute Auto 2100 /uL (1100-4500); Lymphocytes Percent Auto 47.8 % (25-40); Mean Corpuscular HGB Conc 35.3 % (30-36); Mean Corpuscular Hemoglobin 30.8 PG (26-34); Mean Corpuscular Volume 87.3 fL (80-100); Monocytes Absolute Auto 400 /uL (0-900); Monocytes Percent Auto 9.1 % (3-14); Neutrophils Absolute Auto 1600 /uL (1500-7000); Neutrophils Percent Auto 36.2 % (50-75); Platelet Count 214 X10^3/uL (150-400); Red Blood Cell Count 4.06 X10^6/uL (4.5-5.9); Red Cell Distribution Width 12.5 % (11.6-14.8); White Blood Cell Count 4.4 X10^3/uL (4.5-11.0)
[2022-08-10 05:27] LABS: Alanine Aminotransferase 40 IU/L (<50); Albumin 3.6 g/dL (3.5-5.0); Albumin Globulin Ratio 1.1 (1.0-2.8); Alkaline Phosphatase 63 U/L (38-126); Aspartate Aminotransferase 31 IU/L (17-59); BUN Creatinine Ratio 9.3 (6-22); Bilirubin Total 0.3 mg/dL (0.2-1.3); Blood Urea Nitrogen 5 mg/dL (9-20); Calcium 8.3 mg/dL (8.4-10.2); Carbon Dioxide 23 mmol/L (22-32); Chloride 106 mmol/L (98-107); Estimated Glomerular Filt Rate > 60 mL/min (>60); Globulin 3.2 g/dL (1.7-4.1); Glucose 150 mg/dL (70-100); HEMOLYSIS < 15 (0-50); Potassium 3.6 mmol/L (3.4-5.1); Sodium 137 mmol/L (137-145); Total Protein 6.8 g/dL (6.3-8.2)
[2022-08-10 05:35] LABS: Triglycerides 1157 mg/dL (35-150)
[2022-08-10] MEDS: gemfibroziL 600 MG TABLET PO ×2 (06:02→17:00)
[2022-08-10] MEDS: INSULIN DRIP PREMIX 100 UNIT/100 ML PLAST..BAG IV (06:13)
[2022-08-10] MEDS: NICOTINE 14 PATCH 14 MG TOP (09:21)
[2022-08-10] MEDS: HEPARIN 5,000 UNIT/ML VIAL 5000 UNIT SUBCUT ×2 (09:21→20:06)
--- NOTE | 2022-08-10 09:30 | P.TELICUPN_ITS ---
Subjective Subjective IF CAMERA ACTIVATED, patient seen via real-time interactive audiovisual communication: Camera activated Date Patient Seen: 08/10/22 Consent obtained for tele-javascript software engineer care: Yes Patient Location: ICU Provider location (State): [place] Other participants/roles: RN Interval history: No acute issues overnight. TG up to 1157. Tolerating PO diet. On insulin 5 units/hr and D10 150cc/hr. Current Medications Current Medications Medications: Home Medications gemfibrozil 600 mg tablet 600 mg PO BID 08/07/22 [History Confirmed 08/07/22] hydrochlorothiazide 25 mg tablet 25 mg PO DAILY 08/07/22 [History Confirmed 08/07/22] Visit Medications (administered) Generic Name Dose Route Start Last Admin Trade Name Freq PRN Reason Stop Dose Admin Acetaminophen 975 mg 08/07/22 12:30 08/09/22 11:21 Acetaminophen 325 Mg Tablet PO 975 mg Q8H PRN Administration Pain, Mild (1-3) Gemfibrozil 600 mg 08/09/22 07:00 08/10/22 06:02 Gemfibrozil 600 Mg Tablet PO 600 mg BIDAC MICHAEL Administration Heparin Sodium (Porcine) 5,000 unit 08/07/22 21:00 08/10/22 09:21 Heparin 5,000 Unit/Ml Vial SUBCUT 5,000 unit BID MICHAEL Administration Hydromorphone HCl 2 mg 08/07/22 13:13 08/09/22 22:23 Hydromorphone 2 Mg Inj IV 2 mg Q2H PRN Administration Pain, Severe (7-10) Hydromorphone HCl 1 mg 08/07/22 14:16 08/09/22 20:00 Hydromorphone 1 Mg Inj IV 1 mg Q1H PRN Administration Breakthrough Pain INSULIN DRIP PREMIX 100 unit in 100 mls @ 10.433 mls/hr 08/07/22 12:30 08/10/22 06:13 Myxredlin Drip Premix IV 0.05 unit/kg/hr TITRATE MICHAEL 5 mls/hr Administration Protocol 0.1 UNIT/KG/HR Dextrose 1,000 mls @ 150 mls/hr 08/09/22 20:30 08/10/22 03:57 D10w IV 150 mls/hr CONT MICHAEL Administration Nicotine 14 mg 08/08/22 09:00 08/10/22 09:21 Nicotine 14 Patch TOP 14 mg DAILY MICHAEL Administration Ondansetron HCl 4 mg 08/07/22 13:14 08/09/22 11:08 Ondansetron 4 Mg/2 Ml Inj IV 4 mg Q4HR PRN Administration Nausea And Vomiting Oxycodone HCl 5 mg 08/08/22 16:56 08/09/22 15:21 Oxycodone Ir 5 Mg Tablet PO 5 mg Q4HR PRN Administration Pain, Moderate (4-6) Oxycodone HCl 10 mg 08/09/22 09:44 08/10/22 06:12 Oxycodone Ir 5 Mg Tablet PO 10 mg Q4HR PRN Administration Pain, Severe (7-10) Objective Labs Result Diagrams: 08/10/22 04:44 08/10/22 04:44 Labs: Laboratory Results - last 24 hr 08/09/22 08/10/22 08/10/22 18:15 04:44 04:44 WBC 4.4 L RBC 4.06 L Hgb 12.5 L Hct 35.4 L MCV 87.3 MCH 30.8 MCHC 35.3 RDW 12.5 Plt Count 214 Neut % (Auto) 36.2 L D Lymph % (Auto) 47.8 H [place] % (Auto) 9.1 Eos % (Auto) 6.3 H Baso % (Auto) 0.6 Neut # (Auto) 1600 Lymph # (Auto) 2100 [place] # (Auto) 400 Eos # (Auto) 300 Baso # (Auto) 0 Sodium 137 Potassium 3.6 Chloride 106 Carbon Dioxide 23 BUN 5 L Creatinine 0.54 L Estimated GFR > 60 BUN/Creatinine Ratio 9.3 Glucose 150 H Calcium 8.3 L Magnesium 2.0 Total Bilirubin 0.3 AST 31 ALT 40 Alkaline Phosphatase 63 Total Protein 6.8 Albumin 3.6 Globulin 3.2 Albumin/Globulin Ratio 1.1 Triglycerides 1064 H 08/10/22 04:44 WBC RBC Hgb Hct MCV MCH MCHC RDW Plt Count Neut % (Auto) Lymph % (Auto) [place] % (Auto) Eos % (Auto) Baso % (Auto) Neut # (Auto) Lymph # (Auto) [place] # (Auto) Eos # (Auto) Baso # (Auto) Sodium Potassium Chloride Carbon Dioxide BUN Creatinine Estimated GFR BUN/Creatinine Ratio Glucose Calcium Magnesium Total Bilirubin AST ALT Alkaline Phosphatase Total Protein Albumin Globulin Albumin/Globulin Ratio Triglycerides 1157 H Exam Vital Signs (past 8 hours): - 08/10/22 04:00 08/10/22 06:00 08/10/22 08:15 Temperature 98 F 98.7 F Pulse Rate 77 77 Respiratory Rate 14 17 Blood Pressure 129/82 121/71 Pulse Oximetry 99 99 Oxygen Delivery Method Room Air Oxygen Flow Rate 0 Oxygen Delivery Method Room Air Oxygen Flow Rate 0 Quality TeleICU VTE Deep Vein Thrombosis/Pulmonary Embolism Present on Admission: No Assessment & Plan Assessment & Plan narrative: # Acute pancreatitis -- Secondary to hypertriglyceridemia -- Cont IVF and pain control -- Cont advancing diet as tolerate -- Encourage early mobility # Hypertriglyceridemia -- On lipitor -- On insulin and D10w -- Cont gemfibrozil -- Goal TG < 500 before transitioning off insulin infusion -- Daily TG level D/w RN at bedside. Time Spent With Patient Critical Care time: I spent a total of 32 minutes of critical care time on this patient's care today; this time is exclusive of procedural time.
--- NOTE | 2022-08-10 15:59 | P.PN_ITS ---
Subjective Subjective Date Patient Seen: 08/10/22 Interval history: 41-year-old gentleman presently hospital day number 3 admitted with hypertriglyceridemia induced pancreatitis, type 2 diabetes new diagnosis, and hypertension Patient reports he is feeling quite well today. He is eating solid food and has tolerated it over the last 4 meals. He denies any significant pain presently. No shortness of breath. He is hopeful he will be able to discharge home tomorrow. He states the eyeglass frames inspector had increased his insulin and fluids yesterday in hopes of bringing his triglycerides down further. However, it was not effective. RN notes that the plan was to continue present course and recheck labs at the 24 hour improved Exam Vital Signs (past 8 hours): - 08/10/22 08:15 08/10/22 11:20 Temperature 98.7 F 99.1 F Pulse Rate 77 76 Respiratory Rate 17 20 Blood Pressure 121/71 130/85 Pulse Oximetry 99 99 Oxygen Flow Rate 0 0 Oxygen Delivery Method Room Air Oxygen Flow Rate 0 Narrative Exam Narrative: GEN: Alert and oriented x 3, NAD HEENT:NC, Face symmetric CHEST: Respiratory excursions symmetric, CTAB CV: RRR, no M/R/G ABD: Soft, NT/ND, BT present in all 4 quadrants, no organomegaly or masses EXTR: warm, well perfused, no C/C/E SKIN: warm and dry, no rash NEURO: Alert and oriented x 3, nonfocal Objective Labs Result Diagrams: 08/10/22 04:44 08/10/22 04:44 Labs: Laboratory Results - last 24 hr 08/09/22 08/10/22 08/10/22 18:15 04:44 04:44 WBC 4.4 L RBC 4.06 L Hgb 12.5 L Hct 35.4 L MCV 87.3 MCH 30.8 MCHC 35.3 RDW 12.5 Plt Count 214 Neut % (Auto) 36.2 L D Lymph % (Auto) 47.8 H [place] % (Auto) 9.1 Eos % (Auto) 6.3 H Baso % (Auto) 0.6 Neut # (Auto) 1600 Lymph # (Auto) 2100 [place] # (Auto) 400 Eos # (Auto) 300 Baso # (Auto) 0 Sodium 137 Potassium 3.6 Chloride 106 Carbon Dioxide 23 BUN 5 L Creatinine 0.54 L Estimated GFR > 60 BUN/Creatinine Ratio 9.3 Glucose 150 H Calcium 8.3 L Magnesium 2.0 Total Bilirubin 0.3 AST 31 ALT 40 Alkaline Phosphatase 63 Total Protein 6.8 Albumin 3.6 Globulin 3.2 Albumin/Globulin Ratio 1.1 Triglycerides 1064 H 08/10/22 04:44 WBC RBC Hgb Hct MCV MCH MCHC RDW Plt Count Neut % (Auto) Lymph % (Auto) [place] % (Auto) Eos % (Auto) Baso % (Auto) Neut # (Auto) Lymph # (Auto) [place] # (Auto) Eos # (Auto) Baso # (Auto) Sodium Potassium Chloride Carbon Dioxide BUN Creatinine Estimated GFR BUN/Creatinine Ratio Glucose Calcium Magnesium Total Bilirubin AST ALT Alkaline Phosphatase Total Protein Albumin Globulin Albumin/Globulin Ratio Triglycerides 1157 H [facility] Medical History Hypertension Pancreatitis Surgical History No pertinent past surgical history Family History Father Hypertriglyceridemia CAD (coronary artery disease) Mother No problems noted. Brother CAD (coronary artery disease) Social History household members: spouse Smoking Status: Current every day smoker alcohol intake: current Assessment & Plan Assessment & Plan narrative: 1. Hypertriglyceridemia induced acute pancreatitis Triglyceride level was 4714 on admission. It is now down to 1157. He has a Family history of hypertriglyceridemia, raising suspicion for familial hypertriglyceridemia in this patient. He has had 2 prior admissions in the last 3 years for pancreatitis. He remains on gemfibrozil. Statin therapy was initiated this admission, but the order was inadvertently canceled when he transitioned from ICU level care to acute care. Will add atorvastatin 40 mg daily back to his Jan. he has received 40 mg of oral oxycodone thus far today. He remains on a controlled carb diet. Per recommendations from the eyeglass frames inspector, he will remain on an insulin infusion and D5 IV fluids with hopes to continue to bring down his triglycerides with a goal of 500 her last. 2. Diabetes mellitus type 2, uncontrolled with hyperglycemia, A1c of 7.9% This was a new diagnosis this admission. Plan for discharge on oral metformin. He is presently on an insulin drip. 3. Hypertension Hydrochlorothiazide was discontinued due to increased pancreatitis risk. Blood pressures have been normotensive. 4. Tobacco dependence Nicotine patch as needed Code status Full Prophylaxis On heparin Disposition Possible discharge home tomorrow. Time Spent With Patient Critical Care time: I spent a total of [] minutes of critical care time on this patient's care today; this time is exclusive of procedural time. Quality VTE Deep Vein Thrombosis/Pulmonary Embolism Present on Admission: No
[2022-08-10 18:49] LABS: Triglycerides 1498 mg/dL (35-150)
[2022-08-10] MEDS: ATORVASTATIN 20 MG TABLET 40 MG PO (20:06)
[2022-08-10] MEDS: HYDROMORPHONE 2 MG INJ IV (20:06)
--- NOTE | 2022-08-10 20:30 | PM.ICURNDS ---
- Date Patient Seen: 08/10/22 Time Patient Seen: 20:32 :: This patient was seen via real time interactive two-way audiovisual telecommunication. Note: On inuslin infusion and D10W. Repeat TG tonight is 1498. Concern raises for validity of the test result given patient it was check in the evening after dinner. Will follow up repeat TG in the morning before breakfast. If TG fails to improve then will recommend transferring to tertiary care for plasmapharesis. D/w RN and hospitalist.
[2022-08-11] VITALS (7 sets, daily range): BP systolic 114–121; BP diastolic 71–88; PULSE 69–83; RESP 16–18; TEMP 36.1–36.7; O2SAT 97–99
[2022-08-11] MEDS: HYDROMORPHONE 1 MG INJ IV (00:01)
[2022-08-11] MEDS: INSULIN DRIP PREMIX 100 UNIT/100 ML PLAST..BAG IV (04:23)
[2022-08-11] MEDS: gemfibroziL 600 MG TABLET PO (06:19)
[2022-08-11] MEDS: OXYCODONE IR 5 MG TABLET 10 MG PO (06:19)
[2022-08-11] MEDS: DEXTROSE 10 % IN WATER 1,000 ML 150 ML IV (06:20)
[2022-08-11 06:59] LABS: Triglycerides 1049 mg/dL (35-150)
--- NOTE | 2022-08-11 07:19 | P.PN_ITS ---
Subjective Subjective Date Patient Seen: 08/11/22 Interval history: 41-year-old gentleman presently hospital day number 3 admitted with hypertriglyceridemia induced pancreatitis, type 2 diabetes new diagnosis, and hypertension Patient reports he is feeling quite well today.? He has continued to tolerate oral intake without any pain. He states he has to be at work tomorrow and is not interested in transferring to a tertiary care for a paresis. This was discussed by the patient financial services specialist last evening given his ongoing triglyceride elevation despite insulin infusion. [place] and is receptive to have an outpatient referral if necessary. His primary patient care technician instructor is in [place] and would be able to refer him if need be. [place] also [place]. Exam Vital Signs (past 8 hours): - 08/11/22 00:00 08/11/22 00:00 08/11/22 04:00 Temperature 97.0 F L 97.7 F Pulse Rate 77 69 Respiratory Rate 18 16 Blood Pressure 117/80 114/71 Pulse Oximetry 97 97 Oxygen Delivery Method Room Air 08/11/22 04:00 Temperature Pulse Rate Respiratory Rate Blood Pressure Pulse Oximetry Oxygen Delivery Method Room Air Oxygen Delivery Method Room Air Oxygen Flow Rate 0 Narrative Exam Narrative: GEN: Alert and oriented x 3, NAD HEENT:NC, Face symmetric CHEST: Respiratory excursions symmetric, CTAB CV: RRR, no M/R/G ABD: Soft, NT/ND, BT present in all 4 quadrants, no organomegaly or masses EXTR: warm, well perfused, no C/C/E SKIN: warm and dry, no rash NEURO: Alert and oriented x 3, nonfocal Objective Labs Result Diagrams: 08/10/22 04:44 08/10/22 04:44 Labs: Laboratory Results - last 24 hr 08/10/22 08/11/22 18:16 06:30 Triglycerides 1498 H 1049 H PFSH Medical History Hypertension Pancreatitis Surgical History No pertinent past surgical history Family History Father Hypertriglyceridemia CAD (coronary artery disease) Mother No problems noted. Brother CAD (coronary artery disease) Social History household members: spouse Smoking Status: Current every day smoker alcohol intake: current Assessment & Plan Assessment & Plan narrative: 1. Hypertriglyceridemia induced acute pancreatitis Triglyceride level was 4714 on admission.? It is now down to 1049.? He has a Family history of hypertriglyceridemia, raising suspicion for familial hypertriglyceridemia in this patient.? He has had 2 prior admissions in the last 3 years for pancreatitis.? He remains on gemfibrozil.? Initiated atorvastatin 40 mg daily yesterday. He has received 50 mg of oxycodone in the last 24 hours. He remains on a controlled carb diet.? Per recommendations from the patient financial services specialist, he will remain on an insulin infusion and D5 IV fluids with hopes to continue to bring down his triglycerides with a goal of 500 or less. Per discussion with Dr. Ricketts last evening, if his triglycerides do not improve, consideration of transfer to a tertiary care center was recommended. As noted, patient is not interested in that at this time. 2. Diabetes mellitus type 2, uncontrolled with hyperglycemia, A1c of 7.9% This was a new diagnosis this admission.? Plan for discharge on oral metformin.? He is presently on an insulin drip. This will be weaned off and he will be initiated on metformin. 3. Hypertension Hydrochlorothiazide was discontinued due to increased pancreatitis risk.? Blood pressures have been normotensive for the most part with only 2 elevated blood pressures in the last several days. Will need follow-up with his PCP to consider new medication. 4. Tobacco dependence Nicotine patch as needed Code status Full Prophylaxis On heparin Disposition Discharge later today Time Spent With Patient Critical Care time: I spent a total of [] minutes of critical care time on this patient's care today; this time is exclusive of procedural time. Quality VTE Deep Vein Thrombosis/Pulmonary Embolism Present on Admission: No
[2022-08-11] MEDS: ACETAMINOPHEN 325 MG TABLET 975 MG PO (08:01)
[2022-08-11] MEDS: NICOTINE 14 PATCH 14 MG TOP (08:02)
[2022-08-11] MEDS: HEPARIN 5,000 UNIT/ML VIAL 5000 UNIT SUBCUT (08:02)
[2022-08-11] MEDS: OXYCODONE IR 5 MG TABLET PO (10:07)
--- NOTE | 2022-08-11 12:26 | CM.DPNOTE ---
DCP Note: Patient to be discharged. Preparing for dc to home with spouse. Hillary Cohen RN/DCP
--- NOTE | 2022-08-12 13:58 | P.DS_ITS ---
History of Present Illness History of Present Illness Date Patient Seen: 08/11/22 Chief complaint: Severe abd pain all over Discharge Providers Provider Date of admission: 08/07/22 12:14 Discharge Date: 08/11/22 Primary care physician: Toin DAVILA Provider Consults: 08/07/22 12:30 Consult to Tele-marketing planner Routine Comment: Consulting Provider: [employer] Reason for consultation: Office Mover services Discharge provider: Selin Ricardo MD Summary Hospital Course Discharge Diagnosis: 41-year-old gentleman presently hospital day number 3 admitted with hypertriglyceridemia induced pancreatitis, type 2 diabetes new diagnosis, and hypertension 1. Hypertriglyceridemia induced acute pancreatitis Triglyceride level was 4714 on admission.? He was placed on an insulin infusion to bring down his triglyceride levels. It is now down to?1049, but the goal was to get to less than 500. Tele-marketing planner recommended transfer to a tertiary care center for consideration of apheresis. However, pt felt he was back to baseline, was eating/drinking well, and was not interested in transferring to a [facility] facility.? He has a Family history of hypertriglyceridemia, raising suspicion for familial hypertriglyceridemia in this patient.? He has had 2 prior admissions in the last 3 years for pancreatitis.? He remains on gemfibrozil.? Initiated atorvastatin 40 mg daily this admission.? He remains on a controlled carb diet.?Encouraged him to monitor his free fat intake moving forward. Encouraged him to take fish oil (he already takes 2000 units per day) and to add benefiber. [place] and wishes to pursue further outpatient follow-up. 2. Diabetes mellitus type 2, uncontrolled with hyperglycemia, A1c of 7.9% This was a new diagnosis this admission.? He was placed on metformin at d/c. 3. Hypertension Hydrochlorothiazide was discontinued due to increased pancreatitis risk.? Blood pressures remained normotensive throughout most of his hospital stay.? Will need follow-up with his PCP to consider new medication. Status at Discharge Cognitive/behavioral status at discharge: at baseline, oriented Functional status at discharge: independent ambulation Overall status at discharge: patient is back to baseline Exam Vital Signs (past 8 hours): Oxygen Delivery Method Room Air Oxygen Flow Rate 0 Objective Labs Result Diagrams: 08/10/22 04:44 08/10/22 04:44 [facility] Medical History Hypertension Pancreatitis Surgical History No pertinent past surgical history Family History Father Hypertriglyceridemia CAD (coronary artery disease) Mother No problems noted. Brother CAD (coronary artery disease) Social History household members: spouse Smoking Status: Current every day smoker alcohol intake: current Discharge Plan Discharge Plan Patient Disposition: Home Provider Discharge Comment: 1. Continue to eat a low fat, controlled carb diet 2. Start daily benefiber 3. Continue fish oil 4. Start metformin twice daily for Diabetes [place]. [place] 4 [place] 6. F/u w/your PCP this week for recheck 7. Okay to return to work tomorrow as long as you are not taking oxycodone Discharge orders & Medications Prescriptions: New atorvastatin [Lipitor] 20 mg Tablet 40 mg PO BEDTIME Qty: 60 0RF oxycodone 5 mg Tablet 10 mg PO Q4HR PRN (Reason: Pain, Severe (7-10)) Qty: 15 0RF metformin 500 mg tablet 500 mg PO BIDWMEAL Qty: 60 0RF Continued gemfibrozil 600 mg Tablet 600 mg PO BID Discontinued hydrochlorothiazide 25 mg Tablet 25 mg PO DAILY Follow up/Referrals: ProviderToni [Primary Care Provider] - Diet/Activity/Treatments Diet: Carb-consistent/Diabetic Activity: As tolerated; do not drive while taking oxycodone Visit Report/Discharge Packet Instructions: Acute Pancreatitis, High Triglycerides, DI for Diabetes Type 2, DI for Prescription Opioid Use Discharge Data Primary Care Provider: Toni Riley Quality VTE Deep Vein Thrombosis/Pulmonary Embolism Present on Admission: No
== END 2022-08-11 12:45 | disposition home or self-care (01) | DRG 440 ==
LOC: ED 10:44 → AC 12:15 → ICU 12:39
PROVIDERS: Family Medicine; Internal Medicine Pulmonary Disease; Admitting Provider Internal Medicine; Emergency Provider Emergency Medicine; Referring Provider Emergency Medicine; Visit Provider Internal Medicine
DX: K85.80 Other acute pancreatitis without necrosis or infection (principal); E78.1 Pure hyperglyceridemia; I10 Essential (primary) hypertension; E11.65 Type 2 diabetes mellitus with hyperglycemia; F17.210 Nicotine dependence, cigarettes, uncomplicated; Z20.822 Contact with and (suspected) exposure to COVID-19
CPT/HCPCS: 0241U; 36415; 74177; 80048; 80053; 82962; 83036; 83690; 83735; 84478; 85025; 87797; 93005; 96374; 96375; 96376; 99284; J1170; J1644; J2405; J3475